=== PATIENT | female | born 1975 | race Two or more races ===

== ENCOUNTER 2019-03-06 17:17 | Emergency (ER) | payer MEDICAID ==
[~2019-03-06] VITALS: Ht 172.7 cm; Wt 127.0 kg
[2019-03-06] MEDS ORDERED: SODIUM CHLORIDE 0.9% 1,000 ML IV ONE ×2 (17:25)
[2019-03-06] MEDS ORDERED: InsuLIN REG 1unit/0.01ml Soln (100units/ml) IV ONE (17:30)
[2019-03-06 18:13] LABS: Basophils # (auto) 0.1 uL; Basophils % (auto) 0.8 % (0.0-2.0); Eosinophils # (auto) 0.1 uL; Eosinophils % (auto) 1.5 % (0.0-7.0); Hemoglobin 13.3 g/dL (12.2-16.2); Lymphocytes # (auto) 1.7 uL; Lymphocytes % (auto) 24.9 % (10.0-50.0); Mean Corpuscular Hemoglobin 30.9 pg (28.0-32.0); Mean Corpuscular Hgb Conc. 34.9 g/dL (32.0-36.0); Mean Corpuscular Volume 88.4 fL (80.0-100.0); Monocytes # (auto) 0.5 uL; Monocytes % (auto) 7.7 % (0.0-12.0); Neutrophils # (auto) 4.5 uL; Neutrophils % (auto) 65.1 % (37.0-80.0); Platelet Count (auto) 180 10^3/uL (140-450); Red Cell Distribution Width 12.2 % (11.8-14.3); White Blood Cell 6.9 10^3/uL (4.4-10.8)
[2019-03-06 18:24] LABS: Albumin 2.5 g/dL (3.4-5.0); Anion Gap 6 (5-15); Blood Urea Nitrogen 11 mg/dL (7-18); Calcium 7.7 mg/dL (8.5-10.1); Carbon Dioxide 24 mmol/L (21-32); Chloride 108 mmol/L (98-107); Glucose 381 mg/dL (74-106); Potassium 3.4 mmol/L (3.5-5.1); Sodium 138 mmol/L (136-145)
[2019-03-06 18:29] LABS: Alanine Aminotransferase 18 U/L (13-56); Alkaline Phosphatase 107 U/L (45-117); Aspartate Aminotransferase 13 U/L (15-37); BUN/Creatinine Ratio 14.9; Bilirubin, Total 0.2 mg/dL (0.2-1.0); GFR African American 110 mL/min; GFR Non-African American 91 mL/min; Total Protein 6.4 g/dL (6.4-8.2)
[2019-03-06 19:00] VITALS: BP 161/70
[2019-03-06 19:10] LABS: Urine Bacteria FEW /hpf (None Seen); Urine Blood Negative /uL (Negative); Urine Specific Gravity 1.038 (1.001-1.035); Urine WBC 22 /hpf (0 - 5)
[2019-03-06] MEDS ORDERED: POTASSIUM EFFERVESENT TAB 25 MEQ PO ONE (19:30)
== END 2019-03-06 19:48 | disposition home or self-care (01) ==
LOC: ER 17:17 → EDBD 17:17 → ER 19:48
DX: E11.65 Type 2 diabetes mellitus with hyperglycemia (principal); N39.0 Urinary tract infection, site not specified; E87.6 Hypokalemia; E44.0 Moderate protein-calorie malnutrition; Z68.41 Body mass index [BMI] 40.0-44.9, adult
CPT/HCPCS: 36415; 80053; 81001; 82962; 84484; 85025; 93005; 96361; 96374; 99284; J1815; J7030

== ENCOUNTER 2020-01-31 00:38 | Emergency (ER) | payer MEDICAID ==
[~2020-01-31] VITALS: Ht 170.2 cm; Wt 131.5 kg
[2020-01-31] MEDS ORDERED: SODIUM CHLORIDE 0.9% 1,000 ML IV ONE (01:00)
[2020-01-31] MEDS ORDERED: ACCU-CHEK COMFORT CURVE STRIP VI ONE (01:00)
[2020-01-31] MEDS ORDERED: InsuLIN REG 1unit/0.01ml Soln (100units/ml) IV ONE (01:00)
[2020-01-31 02:54] LABS: Basophils # (auto) 0 10 ^3/uL (0-0.2); Basophils % (auto) 0.2 % (0.0-2.0); Eosinophils # (auto) 0.1 10 ^3/uL (0-0.8); Eosinophils % (auto) 0.9 % (0.0-7.0); Hemoglobin 15.1 g/dL (12.2-16.2); Lymphocytes # (auto) 1.7 10 ^3/uL (0.4-5.4); Lymphocytes % (auto) 15.5 % (10.0-50.0); Mean Corpuscular Hgb Conc. 34.4 g/dL (32.0-36.0); Mean Corpuscular Volume 90.1 fL (80.0-100.0); Monocytes # (auto) 0.7 10 ^3/uL (0-1.3); Monocytes % (auto) 6.4 % (0.0-12.0); Neutrophils # (auto) 8.5 10 ^3/uL (1.6-8.6); Platelet Count (auto) 199 10^3/uL (140-450); Red Blood Cells 4.88 10^6/uL (4.0-5.20); Red Cell Distribution Width 11.9 % (11.8-14.3); White Blood Cell 11.1 10^3/uL (4.4-10.8)
[2020-01-31 03:02] LABS: Albumin 2.6 g/dL (3.4-5.0); Anion Gap 6 (5-15); BUN/Creatinine Ratio 10.8; Blood Urea Nitrogen 8 mg/dL (7-18); Calcium 8.2 mg/dL (8.5-10.1); Carbon Dioxide 27 mmol/L (21-32); Chloride 100 mmol/L (98-107); GFR African American 110 mL/min; GFR Non-African American 91 mL/min; Glucose 369 mg/dL (74-106); Potassium 3.6 mmol/L (3.5-5.1); Sodium 133 mmol/L (136-145)
[2020-01-31 03:07] LABS: Alanine Aminotransferase 25 U/L (13-56); Alkaline Phosphatase 122 U/L (45-117); Aspartate Aminotransferase 14 U/L (15-37); Bilirubin, Total 0.6 mg/dL (0.2-1.0); Total Protein 7.9 g/dL (6.4-8.2)
[2020-01-31] MEDS ORDERED: MORPHINE SULFATE 4 MG/ML SYR/VIAL IV ONE (04:45)
[2020-01-31] MEDS ORDERED: ONDANSETRON HCL 4 MG/2 ML VIAL IV ONE (04:45)
[2020-01-31 06:10] LABS: Urine Bacteria NONE SEEN /hpf (None Seen); Urine Blood 3+ /uL (Negative); Urine Budding Yeast FEW /hpf (None Seen); Urine Specific Gravity 1.035 (1.001-1.035); Urine WBC 70 /hpf (0 - 5)
[2020-01-31] MEDS ORDERED: cefTRIAXone 1GM/50ML D5W 50 ML IV ONE (09:15)
[2020-01-31 11:00] VITALS: BP 143/76
== END 2020-01-31 11:25 | disposition home or self-care (01) ==
LOC: EDBD 00:38 → ER 00:38
DX: E11.65 Type 2 diabetes mellitus with hyperglycemia (principal); N12 Tubulo-interstitial nephritis, not specified as acute or chronic; Z20.828 Contact with and (suspected) exposure to other viral communicable diseases
CPT/HCPCS: 36415; 36600; 80053; 81001; 82805; 82962; 83880; 84484; 85025; 87426; 96361; 96365; 96375; 99285; J0696; J1815; J2270; J2405; J7030

== ENCOUNTER 2021-05-02 23:01 | Inpatient (IN) | payer MEDICAID ==
[~2021-05-02] VITALS: Ht 170.2 cm; Wt 126.4 kg
[2021-05-03 00:03] LABS: Basophils # (auto) 0.1 10 ^3/uL (0-0.2); Basophils % (auto) 0.5 % (0.0-2.0); Eosinophils # (auto) 0 10 ^3/uL (0-0.8); Eosinophils % (auto) 0.1 % (0.0-7.0); Hematocrit 46.7 % (36.0-46.0); Lymphocytes # (auto) 1.6 10 ^3/uL (0.4-5.4); Lymphocytes % (auto) 15.2 % (10.0-50.0); Mean Corpuscular Hemoglobin 30.4 pg (28.0-32.0); Mean Corpuscular Hgb Conc. 34.2 g/dL (32.0-36.0); Mean Corpuscular Volume 88.7 fL (80.0-100.0); Monocytes # (auto) 0.7 10 ^3/uL (0-1.3); Neutrophils # (auto) 8.3 10 ^3/uL (1.6-8.6); Neutrophils % (auto) 77.2 % (37.0-80.0); Red Blood Cells 5.26 10^6/uL (4.0-5.20); Red Cell Distribution Width 12.2 % (11.8-14.3); White Blood Cell 10.8 10^3/uL (4.4-10.8)
[2021-05-03 00:21] LABS: Albumin 2.8 g/dL (3.4-5.0); BUN/Creatinine Ratio 27.5; Calcium 9.1 mg/dL (8.5-10.1); Potassium 4.3 mmol/L (3.5-5.1)
[2021-05-03 00:29] LABS: Bilirubin, Total 0.6 mg/dL (0.2-1.0); Total Protein 7.8 g/dL (6.4-8.2)
[2021-05-03] MEDS ORDERED: levETIRAcetam 500 MG/5ML INJ IV ONE (02:41)
[2021-05-03] MEDS ORDERED: LORazepam 2MG/ML-1ML VIAL IV ONE (02:45)
[2021-05-03] MEDS ORDERED: SODIUM CHLORIDE 0.9% 1,000 ML IV ONE (03:15)
[2021-05-03 03:52] LABS: Basophils # (auto) 0.1 10 ^3/uL (0-0.2); Basophils % (auto) 0.6 % (0.0-2.0); Eosinophils # (auto) 0 10 ^3/uL (0-0.8); Eosinophils % (auto) 0.1 % (0.0-7.0); Hematocrit 44.9 % (36.0-46.0); Hemoglobin 15.3 g/dL (12.2-16.2); Mean Corpuscular Hemoglobin 30.2 pg (28.0-32.0); Mean Corpuscular Hgb Conc. 34.2 g/dL (32.0-36.0); Mean Corpuscular Volume 88.4 fL (80.0-100.0); Monocytes # (auto) 0.7 10 ^3/uL (0-1.3); Monocytes % (auto) 6.7 % (0.0-12.0); Neutrophils # (auto) 7.8 10 ^3/uL (1.6-8.6); Neutrophils % (auto) 73.6 % (37.0-80.0); Red Blood Cells 5.08 10^6/uL (4.0-5.20); White Blood Cell 10.6 10^3/uL (4.4-10.8)
[2021-05-03 04:12] LABS: Calcium 8.4 mg/dL (8.5-10.1); Potassium 3.7 mmol/L (3.5-5.1)
[2021-05-03 04:23] LABS: Albumin 2.6 g/dL (3.4-5.0); BUN/Creatinine Ratio 28.3; Bilirubin, Total 0.7 mg/dL (0.2-1.0); Total Protein 7.5 g/dL (6.4-8.2)
[2021-05-03 04:42] LABS: Amphetamine Screen, Urine POSITIVE (NEGATIVE); Barbiturate Scree,Urine NEGATIVE (NEGATIVE); Benzodiazephine Screen, Urine NEGATIVE (NEGATIVE); Cannabinoid Screen, Urine NEGATIVE (NEGATIVE); Cocaine Screen, Urine NEGATIVE (NEGATIVE); Opiate Scree,Urine NEGATIVE (NEGATIVE); Phencyclidine Screen, Urine NEGATIVE (NEGATIVE)
[2021-05-03 05:12] LABS: Urine Bacteria FEW /hpf (None Seen); Urine Blood Negative /uL (Negative); Urine Mucus FEW (None Seen); Urine Specific Gravity 1.048 (1.001-1.035); Urine WBC 4 /hpf (0 - 5)
[2021-05-03] MEDS ORDERED: hydrALAZINE HCL 10 MG TAB PO PRN (06:15)
[2021-05-03] MEDS ORDERED: ONDANSETRON HCL 4 MG/2 ML VIAL IV PRN (06:15)
[2021-05-03] MEDS ORDERED: LORazepam 2MG/ML-1ML VIAL IV SCH (08:00)
[2021-05-03] MEDS ORDERED: METF-370 PO (09:27)
[2021-05-03] MEDS: ASPirin 81 mg TAB PO SCH (10:22)
[2021-05-03] MEDS: ATORVASTATIN 20 MG TAB PO SCH (10:22)
[2021-05-03] MEDS ORDERED: ACETAMINOPHEN 325 MG TAB PO SCH (12:00)
[2021-05-03 13:00] VITALS: BP 123/67
[2021-05-03 17:00] VITALS: BP 148/90
[2021-05-03] MEDS ORDERED: DEXTROSE (50%) 50ML SYRG IV PRN (20:15)
[2021-05-03] MEDS: MORPHINE SULFATE INJECTION 2 MG/ML SYRG IV PRN (20:26)
[2021-05-03] MEDS ORDERED: LORazepam 2MG/ML-1ML VIAL IV PRN (21:00)
[2021-05-03 22:00] VITALS: BP 126/69
[2021-05-03] MEDS: ACCU-CHEK COMFORT CURVE STRIP VI SCH (23:36)
[2021-05-03] MEDS: InsuLIN REG 1unit/0.01ml Soln (100units/ml) SC SCH (23:38)
[2021-05-04] MEDS: LORazepam 2MG/ML-1ML VIAL IV PRN (01:07)
[2021-05-04 05:00] VITALS: BP 131/75
[2021-05-04] MEDS: ACCU-CHEK COMFORT CURVE STRIP VI SCH ×3 (05:45→17:32)
[2021-05-04] MEDS: InsuLIN REG 1unit/0.01ml Soln (100units/ml) SC SCH ×4 (05:48→17:33)
[2021-05-04 09:00] VITALS: BP 125/65
[2021-05-04] MEDS: ATORVASTATIN 20 MG TAB PO SCH (09:07)
[2021-05-04] MEDS: ASPirin 81 mg TAB PO SCH (09:07)
[2021-05-04] MEDS: ACETAMINOPHEN 325 MG TAB PO PRN (12:35)
[2021-05-04 12:42] LABS: Cholesterol 155 mg/dL (< 200)
[2021-05-04 12:45] LABS: HDL Cholesterol 32 mg/dL (40-59); LDL Cholesterol 108 mg/dL (< 100); Triglycerides 117 mg/dL (< 150)
[2021-05-04 13:00] VITALS: BP 129/59
[2021-05-04 17:00] VITALS: BP 143/61
[2021-05-04 21:43] VITALS: BP 129/83
[2021-05-05] MEDS: ACCU-CHEK COMFORT CURVE STRIP VI SCH ×4 (00:13→16:58)
[2021-05-05] MEDS: InsuLIN REG 1unit/0.01ml Soln (100units/ml) SC SCH ×5 (00:14→23:57)
[2021-05-05] MEDS: MORPHINE SULFATE INJECTION 2 MG/ML SYRG IV PRN (01:51)
[2021-05-05 05:00] VITALS: BP 131/68
[2021-05-05 09:17] VITALS: BP 123/77
[2021-05-05] MEDS: ASPirin 81 mg TAB PO SCH (10:30)
[2021-05-05] MEDS: ATORVASTATIN 20 MG TAB PO SCH (10:30)
[2021-05-05] MEDS: LORazepam 2MG/ML-1ML VIAL IV PRN (10:35)
[2021-05-05 13:00] VITALS: BP 134/72
[2021-05-05 14:48] LABS: Albumin 2.7 g/dL (3.4-5.0); Calcium 8.7 mg/dL (8.5-10.1); Potassium 3.9 mmol/L (3.5-5.1)
[2021-05-05 14:51] LABS: BUN/Creatinine Ratio 24.1; Total Protein 7.1 g/dL (6.4-8.2)
[2021-05-05 17:05] VITALS: BP_SYST 119; BP_SYST 126; BP_DIAS 70; BP_DIAS 75
[2021-05-05 22:00] VITALS: BP 121/66
[2021-05-06 05:00] VITALS: BP 115/59
[2021-05-06] MEDS: ACCU-CHEK COMFORT CURVE STRIP VI SCH ×4 (06:00→17:43)
[2021-05-06] MEDS: InsuLIN REG 1unit/0.01ml Soln (100units/ml) SC SCH ×3 (06:25→17:45)
[2021-05-06 08:23] VITALS: BP 152/71
[2021-05-06] MEDS: ASPirin 81 mg TAB PO SCH (10:08)
[2021-05-06] MEDS: ATORVASTATIN 20 MG TAB PO SCH (10:08)
[2021-05-06 12:24] VITALS: BP 127/66
[2021-05-06 17:13] VITALS: BP 113/62
[2021-05-06] MEDS: ACETAMINOPHEN 325 MG TAB PO PRN (21:49)
[2021-05-06 22:00] VITALS: BP 116/59
[2021-05-07] MEDS: ACCU-CHEK COMFORT CURVE STRIP VI SCH ×3 (00:04→12:15)
[2021-05-07] MEDS: InsuLIN REG 1unit/0.01ml Soln (100units/ml) SC SCH ×3 (01:05→12:16)
[2021-05-07 05:00] VITALS: BP 112/57
[2021-05-07] MEDS: ACETAMINOPHEN 325 MG TAB PO PRN (06:35)
[2021-05-07 08:53] VITALS: BP 105/56
[2021-05-07] MEDS: ASPirin 81 mg TAB PO SCH (09:32)
[2021-05-07] MEDS: ATORVASTATIN 20 MG TAB PO SCH (09:33)
[2021-05-07 12:55] VITALS: BP 127/67
== END 2021-05-07 14:24 | disposition home or self-care (01) | DRG 53 ==
LOC: EDBD 23:01 → ER 23:01 → TELE 05-03 06:05 → TELE-WESTW 05-03 13:12
PROVIDERS: ADMIT Nurse Practitioner Family; ATTEND Nurse Practitioner Family
DX: G40.409 Other generalized epilepsy and epileptic syndromes, not intractable, without status epilepticus (principal); E88.09 Other disorders of plasma-protein metabolism, not elsewhere classified; E11.9 Type 2 diabetes mellitus without complications; Z20.822 Contact with and (suspected) exposure to COVID-19; E66.01 Morbid (severe) obesity due to excess calories; F15.90 Other stimulant use, unspecified, uncomplicated; F17.200 Nicotine dependence, unspecified, uncomplicated; I10 Essential (primary) hypertension; Z68.41 Body mass index [BMI] 40.0-44.9, adult; Z90.49 Acquired absence of other specified parts of digestive tract
CPT/HCPCS: 36415; 70450; 70496; 70498; 70551; 71045; 80053; 80061; 80307; 81001; 82962; 83880; 84484; 85025; 87426; 93005; 93306; 95819; 96365; 96366; 96375; 97110; 97116; 97162; 97530; 99291; G0378; J1815; J7060

== ENCOUNTER 2021-05-11 09:13 | Emergency (ER) | payer MEDICAID ==
[~2021-05-11] VITALS: Ht 172.7 cm; Wt 122.5 kg
[~2021-05-11 09:13] MED LIST: METF-370 PO
[2021-05-11 10:17] VITALS: BP 144/75
== END 2021-05-11 10:27 | disposition home or self-care (01) ==
LOC: ER 09:13
DX: L23.9 Allergic contact dermatitis, unspecified cause (principal); E11.9 Type 2 diabetes mellitus without complications
CPT/HCPCS: 73120

== ENCOUNTER 2022-09-19 13:00 | Emergency (ER) | payer MEDICAID ==
[~2022-09-19] VITALS: Ht 175.3 cm; Wt 150.0 kg
[2022-09-19 13:10] VITALS: BP 175/80
== END 2022-09-19 13:38 | disposition left against medical advice (07) ==
LOC: ER 13:00
DX: R73.9 Hyperglycemia, unspecified (principal); R42 Dizziness and giddiness; Z53.21 Procedure and treatment not carried out due to patient leaving prior to being seen by health care provider
CPT/HCPCS: 82962

== ENCOUNTER 2022-09-24 18:07 | Emergency (ER) | payer MEDICAID ==
[~2022-09-24] VITALS: Ht 175.3 cm; Wt 100.0 kg
[2022-09-24 18:14] VITALS: BP 127/73
== END 2022-09-24 19:49 | disposition left against medical advice (07) ==
LOC: EDBD 18:07 → ER 18:07
DX: S09.90XA Unspecified injury of head, initial encounter (principal); E11.9 Type 2 diabetes mellitus without complications; Z79.84 Long term (current) use of oral hypoglycemic drugs; Y04.2XXA Assault by strike against or bumped into by another person, initial encounter; Y93.89 Activity, other specified; Y92.89 Other specified places as the place of occurrence of the external cause; Y99.8 Other external cause status

== ENCOUNTER 2023-01-27 13:41 | Emergency (ER) | payer MEDICAID ==
[~2023-01-27] VITALS: Ht 175.3 cm; Wt 111.0 kg
[2023-01-27] MEDS ORDERED: KETOROLAC TROMETH 60MG/2ML VIAL IM ONE (14:15)
[2023-01-27 14:48] LABS: Basophils # (auto) 0 10 ^3/uL (0-0.2); Basophils % (auto) 0.3 % (0.0-2.0); Eosinophils # (auto) 0.3 10 ^3/uL (0-0.8); Eosinophils % (auto) 3.6 % (0.0-7.0); Hematocrit 42.7 % (36.0-46.0); Hemoglobin 14.5 g/dL (12.2-16.2); Lymphocytes # (auto) 2.8 10 ^3/uL (0.4-5.4); Lymphocytes % (auto) 32.3 % (10.0-50.0); Mean Corpuscular Hemoglobin 30.3 pg (28.0-32.0); Mean Corpuscular Volume 89.1 fL (80.0-100.0); Monocytes # (auto) 0.4 10 ^3/uL (0-1.3); Monocytes % (auto) 4.8 % (0.0-12.0); Neutrophils # (auto) 5.1 10 ^3/uL (1.6-8.6); Red Blood Cells 4.79 10^6/uL (4.0-5.20); Red Cell Distribution Width 13.2 % (11.8-14.3); White Blood Cell 8.7 10^3/uL (4.4-10.8)
[2023-01-27 15:03] LABS: Albumin 3.2 g/dL (3.4-5.0); Calcium 8.8 mg/dL (8.5-10.1)
[2023-01-27 15:05] LABS: BUN/Creatinine Ratio 14.9 (10.0-20.0)
[2023-01-27 15:07] LABS: Bilirubin, Total 0.5 mg/dL (0.2-1.0); Total Protein 7.7 g/dL (6.4-8.2)
[2023-01-27 16:43] LABS: Urine Bacteria FEW /hpf (None Seen); Urine Blood Negative /uL (Negative); Urine Clarity CLOUDY (Clear); Urine Color Yellow (Yellow); Urine Mucus FEW (None Seen); Urine Protein, UAD TRACE (Negative); Urine Specific Gravity 1.023 (1.001-1.035); Urine Urobilinogen Normal (Negative); Urine WBC 24 /hpf (0 - 5); Urine pH 5.5 (5.0-8.0)
[2023-01-27] MEDS ORDERED: CIPR-173 PO (16:52)
[2023-01-27] MEDS ORDERED: CIPROFLOXACIN HCL 500 MG TAB PO ONE (17:00)
[2023-01-27 17:11] VITALS: BP 162/84; PULSE 88; RESP 18; TEMP 98.8; O2SAT 99
== END 2023-01-27 17:12 | disposition home or self-care (01) ==
LOC: ER 13:41
DX: N39.0 Urinary tract infection, site not specified (principal); I10 Essential (primary) hypertension; E11.9 Type 2 diabetes mellitus without complications; Z90.49 Acquired absence of other specified parts of digestive tract; Z79.2 Long term (current) use of antibiotics; Z79.899 Other long term (current) drug therapy
CPT/HCPCS: 36415; 74176; 80053; 81001; 85025; 96372; 99285; J1885

== ENCOUNTER 2023-09-01 18:10 | Inpatient (IN) | payer MEDICAID ==
[~2023-09-01] VITALS: Ht 172.7 cm; Wt 113.0 kg
[~2023-09-01 18:10] MED LIST changes: +CIPR-173 PO
[2023-09-01 19:03] LABS: Basophils # (auto) 0 10 ^3/uL (0-0.2); Basophils % (auto) 0.4 % (0.0-2.0); Eosinophils # (auto) 0.1 10 ^3/uL (0-0.8); Eosinophils % (auto) 0.8 % (0.0-7.0); Hematocrit 41.8 % (36.0-46.0); Lymphocytes # (auto) 2.3 10 ^3/uL (0.4-5.4); Lymphocytes % (auto) 28.4 % (10.0-50.0); Mean Corpuscular Hemoglobin 29.6 pg (28.0-32.0); Mean Corpuscular Hgb Conc. 33.5 g/dL (32.0-36.0); Mean Corpuscular Volume 88.4 fL (80.0-100.0); Monocytes # (auto) 0.4 10 ^3/uL (0-1.3); Monocytes % (auto) 5.5 % (0.0-12.0); Neutrophils # (auto) 5.2 10 ^3/uL (1.6-8.6); Neutrophils % (auto) 64.9 % (37.0-80.0); Red Blood Cells 4.73 10^6/uL (4.0-5.20); Red Cell Distribution Width 13.2 % (11.8-14.3)
[2023-09-01 19:25] LABS: Alanine Aminotransferase 17 U/L (7-40); Albumin 3.7 g/dL (3.2-4.8); Alkaline Phosphatase 97 U/L (46-116); Anion Gap 6 (5-15); Aspartate Aminotransferase 16 U/L (13-40); BUN/Creatinine Ratio 14.1 (10.0-20.0); Blood Urea Nitrogen 11 mg/dL (9-23); Carbon Dioxide 29 mmol/L (20-30); Chloride 101 mmol/L (98-107); Glucose 260 mg/dL (74-106); Sodium 136 mmol/L (136-145)
[2023-09-01 19:26] LABS: Bilirubin, Total 0.5 mg/dL (0.2-1.0); Total Protein 6.9 g/dL (5.7-8.2)
[2023-09-01] MEDS: IOHEXOL 350 MG/ML 100ML IJ ONE (20:50)
[2023-09-01 21:00] VITALS: PULSE 87; RESP 18; O2SAT 98
[2023-09-02] MEDS ORDERED: ONDANSETRON HCL 4 MG/2 ML VIAL IV PRN (00:30)
[2023-09-02] MEDS ORDERED: DEXTROSE (50%) 50ML SYRG IV PRN (00:30)
[2023-09-02] MEDS: HYDROcodone-ACET 5/325MG TAB PO PRN (01:02)
[2023-09-02 01:31] LABS: Urine Bacteria NONE SEEN /hpf (None Seen); Urine Blood 1+ /uL (Negative); Urine Clarity Clear (Clear); Urine Color Colorless (Yellow); Urine Protein, UAD TRACE (Negative); Urine WBC 3 /hpf (0 - 5)
[2023-09-02 01:32] LABS: Urine Specific Gravity > 1.050 (1.001-1.035)
[2023-09-02 01:38] LABS: Amphetamine Screen, Urine Pos (NEGATIVE); Barbiturate Scree,Urine Neg (NEGATIVE); Benzodiazephine Screen, Urine Neg (NEGATIVE); Cannabinoid Screen, Urine Neg (NEGATIVE); Cocaine Screen, Urine Neg (NEGATIVE); Opiate Scree,Urine Neg (NEGATIVE); Phencyclidine Screen, Urine Neg (NEGATIVE)
[2023-09-02] MEDS: InsuLIN REG 1unit/0.01ml Soln (100units/ml) SC SCH (06:24)
[2023-09-02] MEDS: ACCU-CHEK COMFORT CURVE STRIP VI SCH (06:25)
[2023-09-02 07:30] VITALS: PULSE 80; RESP 18; O2SAT 98
[2023-09-02] MEDS ORDERED: hydrALAZINE HCL 20 MG/ML VL IV PRN (07:30)
[2023-09-02 08:14] LABS: Basophils # (auto) 0 10 ^3/uL (0-0.2); Basophils % (auto) 0.4 % (0.0-2.0); Eosinophils # (auto) 0.1 10 ^3/uL (0-0.8); Eosinophils % (auto) 1.8 % (0.0-7.0); Hematocrit 39.6 % (36.0-46.0); Hemoglobin 13.1 g/dL (12.2-16.2); Lymphocytes # (auto) 2.5 10 ^3/uL (0.4-5.4); Lymphocytes % (auto) 35.1 % (10.0-50.0); Mean Corpuscular Hemoglobin 29.2 pg (28.0-32.0); Mean Corpuscular Volume 88.7 fL (80.0-100.0); Monocytes # (auto) 0.6 10 ^3/uL (0-1.3); Neutrophils # (auto) 3.9 10 ^3/uL (1.6-8.6); Neutrophils % (auto) 54.7 % (37.0-80.0); Nucleated Red Blood Cells % 0.1 %; Red Blood Cells 4.47 10^6/uL (4.0-5.20); Red Cell Distribution Width 12.9 % (11.8-14.3); White Blood Cell 7.1 10^3/uL (4.4-10.8)
[2023-09-02 08:27] LABS: Albumin 3.4 g/dL (3.2-4.8); Alkaline Phosphatase 80 U/L (46-116); Anion Gap 7 (5-15); Aspartate Aminotransferase 18 U/L (13-40); BUN/Creatinine Ratio 14.7 (10.0-20.0); Bilirubin, Total 0.7 mg/dL (0.2-1.0); Blood Urea Nitrogen 10 mg/dL (9-23); CRP High Sensitivity 0.15 mg/dL (<1.0); Calcium 8.4 mg/dL (8.5-10.1); Carbon Dioxide 24 mmol/L (20-30); Chloride 105 mmol/L (98-107); Cholesterol 136 mg/dL (< 200); Glucose 226 mg/dL (74-106); HDL Cholesterol 36 mg/dL (40-59); LDL Cholesterol 87 mg/dL (< 100); Potassium 3.6 mmol/L (3.5-5.1); Sodium 136 mmol/L (136-145); Total Protein 6.5 g/dL (5.7-8.2); Triglycerides 135 mg/dL (< 150)
[2023-09-02 08:32] LABS: INR 1.09 (0.9-1.15); Prothrombin Time 11.4 sec (9.3-11.8)
[2023-09-02 08:34] LABS: Alanine Aminotransferase 9 U/L (7-40)
[2023-09-02 09:18] LABS: Magnesium 1.5 mg/dL (1.6-2.6)
[2023-09-02 09:29] LABS: Folate (Folic Acid) 19.22 ng/mL (>5.38)
[2023-09-02] MEDS: ATORVASTATIN 20 MG TAB PO ONE (09:51)
[2023-09-02] MEDS: LISINOPRIL 5 MG TAB PO SCH (09:51)
[2023-09-02] MEDS: MAGNESIUM SULFATE 1GM/100ML 100 ML IV SCH (12:30)
[2023-09-02] MEDS: ENOXAPARIN SOD 40 MG/0.4 ML SYRINGE SC ONE (12:32)
[2023-09-02] MEDS: CYANOCOBALAMIN (B-12) 1000 MCG/1 ML VIAL IM ONE (12:33)
[2023-09-02] MEDS: CLOPIDOGREL BISULFATE 75 MG TAB PO ONE (14:21)
[2023-09-02] MEDS: ERGOCALCIFEROL 50,000 UNIT(1.25MG) CAP PO SCH (14:21)
[2023-09-02] MEDS: LIDOCAINE VISCOUS 2% 15ML UD MT ONE (15:31)
[2023-09-02] MEDS: MIDAZOLAM HCL 2MG/2ML 2ml VIAL (1mg/ml) IV ONE ×3 (15:45→15:49)
[2023-09-02] MEDS: fentaNYL CITRATE 100 MCG/2 ML VL IV ONE ×2 (15:45→15:47)
[2023-09-02 19:30] VITALS: PULSE 81; RESP 14; O2SAT 94
[2023-09-02 21:46] VITALS: BP 137/74; PULSE 81; RESP 14; O2SAT 94
[2023-09-02 21:50] VITALS: O2SAT 96
[2023-09-03] VITALS (22 sets, daily range): BP systolic 96–162; BP diastolic 47–85; PULSE 67–87; RESP 11–20; TEMP 97.6–99; O2SAT 91–99
[2023-09-03 06:35] LABS: Basophils # (auto) 0 10 ^3/uL (0-0.2); Basophils % (auto) 0.4 % (0.0-2.0); Eosinophils # (auto) 0.2 10 ^3/uL (0-0.8); Eosinophils % (auto) 3.1 % (0.0-7.0); Hematocrit 39.2 % (36.0-46.0); Hemoglobin 13.1 g/dL (12.2-16.2); Lymphocytes # (auto) 2.5 10 ^3/uL (0.4-5.4); Lymphocytes % (auto) 34.2 % (10.0-50.0); Mean Corpuscular Hgb Conc. 33.4 g/dL (32.0-36.0); Mean Corpuscular Volume 89.9 fL (80.0-100.0); Monocytes # (auto) 0.7 10 ^3/uL (0-1.3); Monocytes % (auto) 9.5 % (0.0-12.0); Neutrophils # (auto) 3.8 10 ^3/uL (1.6-8.6); Neutrophils % (auto) 52.8 % (37.0-80.0); Nucleated Red Blood Cells % 0.1 %; Red Blood Cells 4.36 10^6/uL (4.0-5.20); Red Cell Distribution Width 12.9 % (11.8-14.3); White Blood Cell 7.2 10^3/uL (4.4-10.8)
[2023-09-03 06:38] LABS: Chloride 109 mmol/L (98-107); Potassium 3.8 mmol/L (3.5-5.1); Sodium 137 mmol/L (136-145)
[2023-09-03 06:40] LABS: Anion Gap 4 (5-15); Calcium 8.3 mg/dL (8.7-10.4); Carbon Dioxide 24 mmol/L (20-30)
[2023-09-03 06:45] LABS: BUN/Creatinine Ratio 15.5 (10.0-20.0); Blood Urea Nitrogen 9 mg/dL (9-23); Glucose 165 mg/dL (74-106)
[2023-09-03 06:46] LABS: Magnesium 1.7 mg/dL (1.6-2.6)
[2023-09-03] MEDS: INSULIN LANTUS (GLARGINE) 1 /0.01ml (100units/ml) SC SCH (07:06)
[2023-09-03] MEDS: ENOXAPARIN SOD 40 MG/0.4 ML SYRINGE SC SCH (09:55)
[2023-09-03] MEDS: ASPirin-EC 81 mg tab PO SCH (09:57)
[2023-09-03] MEDS: CYANOCOBALAMIN 500 MCG TAB PO SCH (09:57)
[2023-09-03] MEDS: CLOPIDOGREL BISULFATE 75 MG TAB PO SCH (09:58)
[2023-09-03] MEDS: MAGNESIUM SULFATE 1GM/100ML 100 ML IV ONE (13:31)
[2023-09-03] MEDS: buPROPion HCL 75 MG TAB PO SCH (17:52)
[2023-09-03] MEDS: ATORVASTATIN 20 MG TAB PO SCH (21:44)
[2023-09-03] MEDS: ACETAMINOPHEN 325 MG TAB PO PRN (21:53)
[2023-09-04 01:00] VITALS: BP 149/74; PULSE 81; RESP 18; TEMP 97.6; O2SAT 96
[2023-09-04 02:07] VITALS: O2SAT 96
[2023-09-04 05:00] VITALS: BP 139/79; PULSE 69; RESP 18; TEMP 97.7; O2SAT 95
[2023-09-04] MEDS: INSULIN LANTUS (GLARGINE) 1 /0.01ml (100units/ml) SC SCH (06:08)
[2023-09-04 06:42] LABS: Basophils # (auto) 0 10 ^3/uL (0-0.2); Basophils % (auto) 0.6 % (0.0-2.0); Eosinophils # (auto) 0.2 10 ^3/uL (0-0.8); Eosinophils % (auto) 2.8 % (0.0-7.0); Hematocrit 40.4 % (36.0-46.0); Hemoglobin 13.5 g/dL (12.2-16.2); Lymphocytes # (auto) 2.7 10 ^3/uL (0.4-5.4); Lymphocytes % (auto) 37.5 % (10.0-50.0); Mean Corpuscular Hemoglobin 29.8 pg (28.0-32.0); Mean Corpuscular Hgb Conc. 33.5 g/dL (32.0-36.0); Mean Corpuscular Volume 88.8 fL (80.0-100.0); Monocytes # (auto) 0.7 10 ^3/uL (0-1.3); Monocytes % (auto) 9.9 % (0.0-12.0); Neutrophils # (auto) 3.5 10 ^3/uL (1.6-8.6); Neutrophils % (auto) 49.2 % (37.0-80.0); Red Blood Cells 4.55 10^6/uL (4.0-5.20); Red Cell Distribution Width 12.8 % (11.8-14.3); White Blood Cell 7.1 10^3/uL (4.4-10.8)
[2023-09-04] MEDS ORDERED: ATOR20TA50 PO (06:47)
[2023-09-04] MEDS ORDERED: LISI-275 PO (06:47)
[2023-09-04] MEDS ORDERED: EMPA1TAB PO (06:47)
[2023-09-04] MEDS ORDERED: ASPI-543 PO (06:47)
[2023-09-04] MEDS ORDERED: CLOP75TA70 PO (06:47)
[2023-09-04] MEDS ORDERED: ERGO1CAP23 PO (06:47)
[2023-09-04] MEDS ORDERED: METF-370 PO (06:47)
[2023-09-04] MEDS ORDERED: BUPR75TA96 PO (06:47)
[2023-09-04] MEDS ORDERED: CYAN500T3 PO (06:47)
[2023-09-04 06:55] LABS: Chloride 109 mmol/L (98-107); Potassium 4.1 mmol/L (3.5-5.1); Sodium 137 mmol/L (136-145)
[2023-09-04 06:56] LABS: Anion Gap 2 (5-15); Calcium 8.7 mg/dL (8.7-10.4); Carbon Dioxide 26 mmol/L (20-30)
[2023-09-04 07:01] LABS: BUN/Creatinine Ratio 18.3 (10.0-20.0); Blood Urea Nitrogen 11 mg/dL (9-23); Glucose 161 mg/dL (74-106)
[2023-09-04 07:02] LABS: Magnesium 1.6 mg/dL (1.6-2.6)
[2023-09-04 09:00] VITALS: BP 136/81; PULSE 91; RESP 18; TEMP 98.2; O2SAT 97
[2023-09-04 10:51] VITALS: BP 136/81; PULSE 91; RESP 18; TEMP 98.2; O2SAT 97
[2023-09-04] MEDS ORDERED: LANC-347 XX (14:05)
[2023-09-04] MEDS ORDERED: BLOO-169 XX (14:05)
== END 2023-09-04 13:30 | disposition home or self-care (01) | DRG 45 ==
LOC: ER 18:10 → EEVIPCON 18:10 → OVERFLOW 23:55 → DOU IN ICU 09-03 03:35 → TELE-CENTR 09-03 16:26
PROVIDERS: ADMIT Internal Medicine; ATTEND Emergency Medicine
PROC: B24BZZ4 Ultrasonography of Heart with Aorta, Transesophageal (ICD-10-PCS; principal; 2023-09-02)
DX: I63.9 Cerebral infarction, unspecified (principal); E11.65 Type 2 diabetes mellitus with hyperglycemia; G40.909 Epilepsy, unspecified, not intractable, without status epilepticus; I10 Essential (primary) hypertension; E66.9 Obesity, unspecified; F15.10 Other stimulant abuse, uncomplicated; F17.210 Nicotine dependence, cigarettes, uncomplicated; G47.33 Obstructive sleep apnea (adult) (pediatric); G47.10 Hypersomnia, unspecified; E83.42 Hypomagnesemia; E53.8 Deficiency of other specified B group vitamins; I34.0 Nonrheumatic mitral (valve) insufficiency; F32.A Depression, unspecified; Z90.49 Acquired absence of other specified parts of digestive tract; Z98.891 History of uterine scar from previous surgery; Z68.37 Body mass index [BMI] 37.0-37.9, adult; Z79.899 Other long term (current) drug therapy; Z79.82 Long term (current) use of aspirin; Z86.73 Personal history of transient ischemic attack (TIA), and cerebral infarction without residual deficits; Z79.84 Long term (current) use of oral hypoglycemic drugs
CPT/HCPCS: 36415; 70450; 70496; 70551; 80048; 80053; 80061; 80307; 81001; 82306; 82607; 82746; 82962; 83036; 83735; 84443; 84484; 85025; 85610; 86141; 86850; 86900; 86901; 87081; 93005; 93306; 93312; 93886; 93970; G0378; J1815; J2250

== ENCOUNTER 2023-09-17 10:56 | Emergency (ER) | payer MEDICAID ==
[~2023-09-17] VITALS: Ht 175.3 cm; Wt 117.0 kg
[~2023-09-17 10:56] MED LIST changes: +ASPI-543 PO; +ATOR20TA50 PO; +BLOO-169 XX; +BUPR75TA96 PO; -CIPR-173 PO; +CLOP75TA70 PO; +CYAN500T3 PO; +EMPA1TAB PO; +ERGO1CAP23 PO; +LANC-347 XX; +LISI-275 PO
[2023-09-17 11:11] VITALS: BP 159/84; PULSE 95; RESP 18; O2SAT 99
[2023-09-17 12:12] LABS: Basophils # (auto) 0 10 ^3/uL (0-0.2); Basophils % (auto) 0.4 % (0.0-2.0); Eosinophils # (auto) 0.1 10 ^3/uL (0-0.8); Eosinophils % (auto) 1.7 % (0.0-7.0); Hematocrit 40.6 % (36.0-46.0); Hemoglobin 13.5 g/dL (12.2-16.2); Lymphocytes # (auto) 2.1 10 ^3/uL (0.4-5.4); Lymphocytes % (auto) 25.8 % (10.0-50.0); Mean Corpuscular Hemoglobin 30.1 pg (28.0-32.0); Mean Corpuscular Hgb Conc. 33.3 g/dL (32.0-36.0); Mean Corpuscular Volume 90.6 fL (80.0-100.0); Monocytes # (auto) 0.5 10 ^3/uL (0-1.3); Monocytes % (auto) 6.4 % (0.0-12.0); Neutrophils # (auto) 5.4 10 ^3/uL (1.6-8.6); Neutrophils % (auto) 65.7 % (37.0-80.0); Red Blood Cells 4.49 10^6/uL (4.0-5.20); Red Cell Distribution Width 13.6 % (11.8-14.3); White Blood Cell 8.2 10^3/uL (4.4-10.8)
[2023-09-17 12:31] LABS: Alanine Aminotransferase 16 U/L (7-40); Alkaline Phosphatase 95 U/L (46-116); Anion Gap 6 (5-15); Aspartate Aminotransferase 25 U/L (13-40); BUN/Creatinine Ratio 18.2 (10.0-20.0); Blood Urea Nitrogen 14 mg/dL (9-23); Carbon Dioxide 25 mmol/L (20-30); Chloride 105 mmol/L (98-107); Glucose 182 mg/dL (74-106); Potassium 3.9 mmol/L (3.5-5.1); Sodium 136 mmol/L (136-145)
[2023-09-17 12:32] LABS: Bilirubin, Total 0.4 mg/dL (0.2-1.0); Total Protein 7.1 g/dL (5.7-8.2)
[2023-09-17] MEDS: HYDROcodone-ACET 5/325MG TAB PO ONE (14:21)
[2023-09-17 15:01] LABS: Urine Bacteria FEW /hpf (None Seen); Urine Blood Negative /uL (Negative); Urine Clarity Turbid (Clear); Urine Color Light-Orange (Yellow); Urine Protein, UAD Negative (Negative); Urine Specific Gravity 1.045 (1.001-1.035); Urine Urobilinogen Normal (Negative); Urine WBC 10 /hpf (0 - 5)
[2023-09-17 15:13] LABS: Amphetamine Screen, Urine Neg (NEGATIVE); Barbiturate Scree,Urine Neg (NEGATIVE); Benzodiazephine Screen, Urine Neg (NEGATIVE); Cannabinoid Screen, Urine Neg (NEGATIVE); Cocaine Screen, Urine Neg (NEGATIVE); Opiate Scree,Urine Neg (NEGATIVE); Phencyclidine Screen, Urine Neg (NEGATIVE)
== END 2023-09-17 20:24 | disposition left against medical advice (07) ==
LOC: EEVIPCON 10:56 → ER 10:56
DX: R51.9 Headache, unspecified (principal); E11.9 Type 2 diabetes mellitus without complications; I10 Essential (primary) hypertension; Z98.51 Tubal ligation status; Z32.02 Encounter for pregnancy test, result negative; Z90.49 Acquired absence of other specified parts of digestive tract; Z79.899 Other long term (current) drug therapy
CPT/HCPCS: 36415; 70450; 80053; 80307; 81001; 81025; 83735; 84484; 85025

== ENCOUNTER 2023-12-30 08:39 | Emergency (ER) | payer MEDICAID ==
[~2023-12-30] VITALS: Ht 172.7 cm; Wt 123.2 kg
[2023-12-30 11:41] LABS: Rapid Influenza A Negative (Negative); Rapid Influenza B Negative (Negative)
[2023-12-30 11:42] LABS: COVID19 ANTIGEN SOFIA FIA POSITIVE (NEGATIVE)
[2023-12-30] MEDS ORDERED: MONT10TA23 PO (11:43)
[2023-12-30] MEDS ORDERED: PROM1SOL4 PO (11:43)
[2023-12-30 11:45] VITALS: BP 133/66; PULSE 95; RESP 17; TEMP 98.2; O2SAT 96
== END 2023-12-30 11:47 | disposition home or self-care (01) ==
LOC: ER 08:39
DX: U07.1 COVID-19 (principal); E11.9 Type 2 diabetes mellitus without complications; I10 Essential (primary) hypertension; R56.9 Unspecified convulsions; Z98.51 Tubal ligation status; Z90.49 Acquired absence of other specified parts of digestive tract
CPT/HCPCS: 36415; 87426; 87804

== ENCOUNTER 2024-05-21 15:22 | Inpatient (IN) | payer MEDICAID ==
[~2024-05-21] VITALS: Ht 175.3 cm; Wt 149.9 kg
[~2024-05-21 15:22] MED LIST changes: +MONT10TA23 PO; +PROM1SOL4 PO
--- NOTE | 2024-05-21 16:10 | ED.PDOC ---
HPI (NEURO) HPI Comments 48y F who presents to the ED for chief complaint of generalized weakness. Pt states she has been having generalized weakness and associated multiple falls and came to the ED for further evaluation. Pt states 1 days prior, she was on the phone with daughter and states she suddenly felt "dizzy and states went blank and for a few seconds, unable to understand what she was talking about." Pt states she quickly able to return to baseline mentation. Pt states today, she had multiple falls getting up from cough to use restroom and getting up to move from bed to closet and since, has been using the aide of her daughter to ambulate. Pt states has also felt weak today and has been having difficulty ambulating otherwise without getting dizzy. Pt denies any associated loss of consciousness after fall and is alert and oriented x4 in the ED and able to answer all questions. Pt otherwise has noted history of HTN, DM, CVA with no residual deficits and seizures. Pt denies any recent sick contacts. Pt otherwise denies any other symptoms at this time. Chief Complaint: General Weakness Time Seen by MD: 16:09 Primary Care Provider: ANASTASIYA Walker Notes: Nurses Notes, Medications, Allergies (No allergies to medications) Information Source: Patient, Relative Mode of Arrival: Wheelchair Brought in by: daughter Severity: Moderate Dizziness/Weakness Severity: Unable to do activities Headache Severity: Moderate Timing: Hours Duration: Since onset Prehospital treatment: None Weakness Location: Generalized Onset: At rest Circumstances: Spontaneous Symptoms: Faintness, Weakness History of: CVA, DM, Hypertension, Seizure Disorder Modifying factors: Nothing Associated Signs and Symptoms: Weakness Past Medical History PAST MEDICAL HISTORY: CVA, DM, HTN, Seizures Surgical History: BTL, Cholecystectomy, 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: No Pertinent 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 Family History Family History: Reviewed,noncontributory to illness Social History Smoker: Non-Smoker Alcohol: Denies ETOH Use Drugs: Denies Drug Use Lives In: Home Constitutional: reports: fatigue, malaise, weakness; denies: chills, diaphoresis, fever, sweats, others EENTM: denies: blurred vision, double vision, ear bleeding, ear discharge, ear drainage, ear pain, ear ringing, eye pain, eye redness, hearing loss, mouth pain, mouth swelling, nasal discharge, nose bleeding, nose congestion, nose pain, photophobia, tearing, throat pain, throat swelling, voice changes, others Respiratory: denies: cough, hemoptysis, orthopnea, SOB at rest, shortness of breath, SOB with excertion, stridor, wheezing, others Cardiovascular: denies: chest pain, dizzy spells, diaphoresis, Dyspnea on exertion, edema, irregular heart beat, left arm pain, lightheadedness, palpitations, PND, syncope, others Gastrointestinal: denies: abdomen distended, abdominal pain, blood streaked bowels, constipated, diarrhea, dysphagia, difficulty swallowing, hematemesis, melena, nausea, poor appetite, poor fluid intake, rectal bleeding, rectal pain, vomiting, others Genitourinary: denies: abnormal vagina bleeding, burning, dyspareunia, dysuria, flank pain, frequency, hematuria, incontinence, pain, , vagina discharge, urgency, others Neurological: reports: dizziness, headache, weakness; denies: fainting, left sided numbness, left sided weakness, numbness, paresthesia, pre-existing deficit, right sided numbness, right sided weakness, seizure, speech problems, tingling, tremors, others Musculoskeletal: denies: back pain, gout, joint pain, joint swelling, muscle pain, muscle stiffness, neck pain, others Integumetry: denies: bruises, change in color, change in hair/nails, dryness, laceration, lesions, lumps, rash, wounds, others Allergic/Immunocompromised: denies: Difficulty Healing, Frequent Infections, Hives, Itching, others Hematologic/Lymphatic: denies: anemia, blood clots, easy bleeding, easy bruising, swollen glands, others Endocrine: denies: excessive hunger, excessive sweating, excessive thirst, excessive urination, flushing, intolerance to cold, intolerance to heat, unexplained weight gain, unexplained weight loss, others Psychiatric: denies: anxiety, bipolar disorder, depression, hopeless, panic disorder, schizophrenia, sleepless, suicidal, others All Other Systems: Reviewed and Negative Physical Exam General Appearance: Moderate Distress, Obese HEENT: Normal ENT Inspection, Pharynx Normal, TMs Normal Neck: Full Range of Motion, Non-Tender, Normal, Normal Inspection Respiratory: Chest Non-Tender, Lungs Clear, No Accessory Muscle Use, No Respiratory Distress, Normal Breath Sounds Cardiovascular: No Edema, No JVD, No Murmur, No Gallop, Normal Peripheral Pulses, Regular Rate/Rhythm Breast Exam: Deferred Gastrointestinal: No Organomegaly, Non Tender, No Pulsatile Mass, Normal Bowel Sounds, Soft Genitalia: Deferred Pelvic: Deferred Rectal: Deferred Extremities: No calf tenderness, Normal capillary refill, No pedal edema Musculoskeletal : Apperance: Normal Neurologic: Alert, bisque ware dipper II-XII nml as Tested, Motor Weakness, Normal Affect, No Sensory Deficits Cerebellar Function: Normal Reflexes: Normal Skin: Dry, Normal Color, Warm Lymphatic: No Adenopathy EKG EKG : Pulse Rate (adult): 78 [place]: Normal Cardiac Rhythm: NSR Block: None Hypertrophy: None ST: Normal Was a procedure done? Was a procedure done?: No Differential Diagnosis (SZ) CVA: CVA, Electrolyte Imbalance, Encephalopathy, Hypoglycemia, Hypoxemia General Weakness: Anemia, CVA, Dehydration, Electrolyte imbalance, Hypotension, TIA, Vertigo: central, Vertigo: peripheral, Vestibular neuronitis, Other (accelerated HTN) Headache: Migraine, Closed Head Injury, Sinusitis, Trigeminal Neuralgia X-Ray, Labs, Meds, VS Vital Signs Date Time Temp Pulse Resp B/P (MAP) Pulse Ox O2 Delivery O2 Flow Rate FiO2 05/21/24 16:10 78 05/21/24 15:58 98.0 87 18 177/90 (119) 98 05/21/24 15:54 78 Lab Test 05/21/24 16:20 05/21/24 16:00 05/21/24 15:50 Range/Units White Blood Count 7.0 4.4-10.8 10^3/uL Red Blood Count 4.67 4.0-5.20 10^6/uL Hemoglobin 14.0 12.2-16.2 g/dL Hematocrit 41.4 36.0-46.0 % Mean Corpuscular Volume 88.7 80.0-100.0 fL Mean Corpuscular Hemoglobin 29.9 28.0-32.0 pg Mean Corpuscular Hemoglobin Concent 33.7 32.0-36.0 g/dL Red Cell Distribution Width 12.8 11.8-14.3 % Platelet Count 216 140-450 10^3/uL Mean Platelet Volume 8.6 6.9-10.8 fL Neutrophils (%) (Auto) 55.1 37.0-80.0 % Lymphocytes (%) (Auto) 34.3 10.0-50.0 % Monocytes (%) (Auto) 8.2 0.0-12.0 % Eosinophils (%) (Auto) 2.0 0.0-7.0 % Basophils (%) (Auto) 0.4 0.0-2.0 % Neutrophils # (Auto) 3.8 1.6-8.6 10 ^3/uL Lymphocytes # (Auto) 2.4 0.4-5.4 10 ^3/uL Monocytes # (Auto) 0.6 0-1.3 10 ^3/uL Eosinophils # (Auto) 0.1 0-0.8 10 ^3/uL Basophils # (Auto) 0 0-0.2 10 ^3/uL Nucleated Red Blood Cells 0.1 % Sodium Level 139 136-145 mmol/L Potassium Level 4.5 3.5-5.1 mmol/L Chloride Level 107 98-107 mmol/L Carbon Dioxide Level 26 20-31 mmol/L Anion Gap 6 5-15 Blood Urea Nitrogen 15 9-23 mg/dL Creatinine 0.74 0.550-1.02 mg/dL Glomerular Filtration Rate Calc 100 >90 mL/min BUN/Creatinine Ratio 20.3 H 10.0-20.0 Serum Glucose 158 H 74-106 mg/dL Lactic Acid Level 0.8 0.4-2.0 mmol/L Calcium Level 9.4 8.7-10.4 mg/dL Urine Color Pending Urine Clarity Pending Urine pH Pending Urine Specific [place] Pending Urine Protein Pending Urine Ketones Pending Urine Blood Pending Urine Nitrite Pending Urine Bilirubin Pending Urine Urobilinogen Pending Urine Leukocyte Esterase Pending Urine RBC Pending Urine WBC Pending Urine Squamous Epithelial Cells Pending Urine Bacteria Pending Urine Glucose Pending POC Glucose 169 H 70-106 mg/dl Current Medications Medications (Trade) Dose Ordered Sig/Reed Route Start Time Stop Time Status Last Admin Sodium Chloride 500 ml @ 500 mls/hr Q1H ONCE IV 05/21/24 16:15 05/21/24 17:14 DC 05/21/24 16:53 PROCEDURE(s): HWOCT - HEAD WITHOUT CONTRAST IMPRESSION: 1. No acute intracranial process. 2. Likely large chronic infarct involving the right temporoparietal lobes. There is also a chronic infarct in the left lateral cerebellum. The CBC is within normal limits Images Reviewed?: Images reviewed and evaluated by me Time of 1ST Reevaluation: 16:40 Reevaluation 1ST: Unchanged Patient Education/Counseling: Diagnosis, Treatment, Prognosis Family Education/Counseling: Diagnosis, Treatment, Prognosis Additional Information - I reviewed the following notes from patient's past medical encounters: - The following tests were ordered, and results were reviewed by me: CT head without contrast, EKG, CBC, UA, BMP, IV fluids, lactic acid - Additional information was gathered from interviewing the following independent Historian: daughter - I reviewed and agreed with the following test results read by other provider: radiologist - I discussed treatments and results with medical personnel and: patient and daughter Departure 1 Departure Time of Disposition: 19:02 Impression: Primary Impression: Generalized weakness Additional Impressions: Dehydration Status post CVA Disposition: 09 ADMITTED INPATIENT Admit to: Tele Condition: Fair Critical Care Note Critical Care Time?: No Stability Stability form required: Yes Unstable for transfer: Telemetry monitoring (Telemetry monitoring required), ED Physician Assesment (Clinical assesment) Heart Score Heart Score: Heart Score Response (Comments) Value History Moderate Suspicious 1 EKG Normal 0 Age 45-64 1 Risk Factors 1 or 2 risk factors 1 Troponin Normal limit 0 Total 3 I personally scribed for PRISCILA CLIFFORD MD ([email or web address]) on 05/21/24 at 16:10. Electronically submitted by Jessica Braswell ([email or web address]). I personally scribed for PRISCILA CLIFFORD MD ([email or web address]) on 05/21/24 at 16:17. Electronically submitted by Jessica Braswell ([email or web address]). I personally scribed for PRISCILA CLIFFORD MD ([email or web address]) on 05/21/24 at 16:52. Electronically submitted by Jessica [email or web address]). PRISCILA CLIFFORD MD May 21, 2024 16:10
--- NOTE | 2024-05-21 16:31 | DVH ---
EXAM: CT HEAD WITHOUT CONTRAST HISTORY: CONFUSION COMPARISON: CT HEAD WITHOUT CONTRAST on DOS: 09/17/23, MRI BRAIN HEAD WO CONTRAST on DOS: 09/02/23 TECHNIQUE: Axial images of the head were obtained and reformatted in coronal and sagittal planes. All CT scans at this medical facility are performed using dose modulation techniques as appropriate t o a performed exam including the following: Automated exposure control was utilized; adjustment of th e MA and/or KV according to patient size; and use of iterative reconstruction technique. CT Dose: CTDI volume is 69 mGy. Dose-length product is 1228 mGy*cm FINDINGS: There is large area of encephalomalacia involving the right temporal and right parietal lobe. This p robably relates to chronic infarct. There is also chronic infarct in the left lateral cerebellum with associated encephalomalacia. There is no evidence of acute intracranial hemorrhage, mass, mass effect midline shift. There is no h ydrocephalus or extra-axial fluid collection. Delete the There are retention cysts in the left maxillary sinus. The remaining visualized paranasal sinuses and mastoid air cells are clear. The calvarium is intact. IMPRESSION: 1. No acute intracranial process. 2. Likely large chronic infarct involving the right temporoparietal lobes. There is also a chronic in farct in the left lateral cerebellum. HS:Y
[2024-05-21 16:41] LABS: Basophils # (auto) 0 10 ^3/uL (0-0.2); Basophils % (auto) 0.4 % (0.0-2.0); Eosinophils # (auto) 0.1 10 ^3/uL (0-0.8); Hematocrit 41.4 % (36.0-46.0); Lymphocytes # (auto) 2.4 10 ^3/uL (0.4-5.4); Lymphocytes % (auto) 34.3 % (10.0-50.0); Mean Corpuscular Hemoglobin 29.9 pg (28.0-32.0); Mean Corpuscular Hgb Conc. 33.7 g/dL (32.0-36.0); Mean Corpuscular Volume 88.7 fL (80.0-100.0); Monocytes # (auto) 0.6 10 ^3/uL (0-1.3); Monocytes % (auto) 8.2 % (0.0-12.0); Neutrophils # (auto) 3.8 10 ^3/uL (1.6-8.6); Neutrophils % (auto) 55.1 % (37.0-80.0); Nucleated Red Blood Cells % 0.1 %; Platelet Count (auto) 216 10^3/uL (140-450); Red Blood Cells 4.67 10^6/uL (4.0-5.20); Red Cell Distribution Width 12.8 % (11.8-14.3)
[2024-05-21 16:50] LABS: Chloride 107 mmol/L (98-107); Potassium 4.5 mmol/L (3.5-5.1); Sodium 139 mmol/L (136-145)
[2024-05-21 16:51] LABS: Anion Gap 6 (5-15); Calcium 9.4 mg/dL (8.7-10.4); Carbon Dioxide 26 mmol/L (20-31)
[2024-05-21] MEDS: SODIUM CHLORIDE 0.9% 500 ML IV ONE (16:53)
[2024-05-21 16:56] LABS: BUN/Creatinine Ratio 20.3 (10.0-20.0); Blood Urea Nitrogen 15 mg/dL (9-23)
[2024-05-21 16:57] LABS: Glucose 158 mg/dL (74-106)
[2024-05-21 18:58] LABS: Urine Bacteria FEW /hpf (None Seen); Urine Blood Negative /uL (Negative); Urine Clarity Clear (Clear); Urine Color Light-Yellow (Yellow); Urine Mucus FEW (None Seen); Urine Protein, UAD Negative (Negative); Urine Specific Gravity 1.029 (1.001-1.035); Urine Urobilinogen Normal (Negative); Urine WBC <1 /hpf (0 - 5); Urine pH 5.5 (5.0-9.0)
[2024-05-21] MEDS ORDERED: NITROGLYCERIN 0.4 MG SL TAB SL PRN (21:15)
[2024-05-21] MEDS ORDERED: ONDANSETRON HCL 4 MG/2 ML VIAL IV PRN (21:15)
[2024-05-21] MEDS ORDERED: DOCUSATE SOD 100 MG CAP PO PRN (21:15)
[2024-05-21] MEDS ORDERED: MORPHINE SULFATE INJ 2 MG/ml SYRG IV PRN ×2 (21:15)
[2024-05-21] MEDS ORDERED: TEMAZEPAM 15 MG CAP PO PRN (21:15)
--- NOTE | 2024-05-21 21:45 | DVH ---
CHEST RADIOGRAPH Indication: Rule out pneumonia Technique: Single frontal view of the chest was obtained Comparison: CHEST PORTABLE on DOS: 05/03/21 FINDINGS: Lines and Tubes: None Lungs: Clear Pleura: No effusion. No pneumothorax. Cardiomediastinal contours: Unremarkable Bones: Unremarkable IMPRESSION: 1. Clear lungs.
[2024-05-21] MEDS: SODIUM CHLOR 0.9% PF (SALINE LOCK) 10ML VIAL/SYR IV SCH (22:18)
[2024-05-21 22:21] LABS: Blood Alcohol < 3.0 mg/dL (<10); Magnesium 1.6 mg/dL (1.6-2.6)
[2024-05-21 23:59] VITALS: PULSE 96; RESP 18; O2SAT 100
[2024-05-22] VITALS (7 sets, daily range): BP systolic 128–146; BP diastolic 57–71; PULSE 20–91; RESP 18–20; TEMP 98–98.4; O2SAT 96–99
[2024-05-22] MEDS ORDERED: DEXTROSE (50%) 50ML SYRG IV PRN
[2024-05-22] MEDS ORDERED: hydrALAZINE HCL 20 MG/ML VL IV PRN
--- NOTE | 2024-05-22 00:03 | DVHHPRES ---
History of Present Illness Resident Creating Document: DASHAWN CANCINO RESIDENT History of Present Illness Patient is 48 years old female with past medical history of ischemic stroke in right middle cerebral artery, right frontal and temporal lobe, left cerebellum, chronic stroke in cerebellum, diabetes mellitus type 2, hypertension, history of seizure, obesity, history of depression, suspected sleep apnea, history of vitamin-D and vitamin B12 deficiency came with a complaint of generalized weakness and fall. As per patient she has been feeling tired for last 2 days and is getting worse. Patient also reported having to fall today back to back when she was trying to get up from the bed. Patient reports that she tried to get up from the bed but she fell on the floor on her right side with some mild sore on the right shoulder, denied hitting head or losing consciousness. Patient also reported that 2 days before when she was trying to talk to 1 0 for palliative she could not speak well but it resolved later. Patient denied acute chest pain, shortness of breath, dysuria, acute change in speech or vision or acute joint pain or swelling. Initial lab workup revealed versus count 7, hemoglobin 14, platelet 216, sodium 139, potassium 4.5, serum creatinine 0.74, blood sugar 158, lactic acid 0.8, urinalysis negative for UTI. CT head revea led-. No acute intracranial process. Likely large chronic infarct involving the right temporoparietal lobes. There is also a chronic infarct in the left lateral cerebellum. CXR no acute cardiopulmonary disease. on 09/01/2023 revealed-Right frontotemporal lobe and left cerebellar regions of asymmetric hypoattenuation, likely representing age indeterminate infarcts, and new compared to 05/04/2021. If clinically concern for acute ischemia, MRI is recommended for further evaluation. CT angio of the head and neck on 09/01/2023-Negative exam for acute vascular changes of the neck. Normal CTA of the brain. Hypodense changes of the right temporoparietal lobe consistent with subacute ischemic event. MRI of the brain on 09/02/2023-Acute infarct in the right frontal and temporal lobes and left cerebellum. These findings were already communicated to Dr. Doyle by Dr. Chamberlain base on CTA head neck findings from 09/01/2023. Carotid Doppler on 09/02/2023- No hemodynamically significant stenosis noted in the right carotid system. No hemodynamically significant stenosis noted in the left carotid system. Elevated velocity in the right ECA. Echo on 09/02/2023-Low normal limit left ventricular systolic function with mid ejection fraction of 50%. There is a grade 1 diastolic dysfunction.Bubble study was conducted showing no evidence of intra-atrial shunt. On 09/02/2023 KRYSTAL revealed- LVEF 50%. There is mild to moderate concentric left ventricular hypertrophy. grade 1 diastolic dysfunction. No left ventricular mass or thrombus was identified.1. No evidence of cardiac source of embolus was detected in the study -Mild concentric left ventricular hypertrophy in addition to borderline left ventricular systolic function at 50% with moderate mitral valve regurgitation. -Possible arrhythmia like atrial fibrillation still could not be ruled out completely even if the patient presented to the hospital with sinus rhythm. Last event recorder might be warranted. -Possible hypertensive heart disease, with uncontrolled hypertension might also have contributed to her presentation, assessment of other risk factors such as hyperglycemia and hyperlipidemia is important. Past Medical History ischemic stroke in right middle cerebral artery, right frontal and temporal lobe, left cerebellum, chronic stroke in cerebellum, diabetes mellitus type 2, hypertension, history of seizure, obesity, history of depression, suspected sleep apnea, history of vitamin-D and vitamin B12 deficiency Past Social History Patient is a ex-smoker, occasional alcoholic, denied using drugs lately lives at home with daughter Review of Systems Review of Systems Allergy- NKDA Personal History/ Social History- Patient was seen today at the bedside. Reports feeling tired Cardiovascular- deny acute chest pain or shortness of breath or cough or palpitation Respiratory- denies cough or short of breath or wheezing Gastrointestinal- denies any rectal bleeding, nausea or vomiting Musculoskeletal-denies acute joint swelling or tenderness or redness Neurological- denies acute dysarthria, dysphagia, change in vision Psychiatry- denies depression or SI or HI Skin- denies acute rash or purpura Allergies: Coded Allergies: NO KNOWN ALLERGIES (Unverified , 10/01/15) Medications Current Medications Medications Dose Ordered Sig/Reed Route Start Time Stop Time Status Last Admin Dose Admin Sodium Chloride 10 ml Q8HR IV 05/21/24 22:00 05/21/24 22:18 10 ML Temazepam 15 mg QHSP PRN PO 05/21/24 21:15 Ondansetron HCl 4 mg Q4HP PRN IV 05/21/24 21:15 Docusate Sodium 100 mg BIDPRN PRN PO 05/21/24 21:15 Acetaminophen 650 mg Q6HP PRN PO 05/21/24 21:15 Morphine Sulfate 2 mg Q4HPRN PRN IV 05/21/24 21:15 Nitroglycerin 0.4 mg Q5MINP PRN SL 05/21/24 21:15 Morphine Sulfate 2 mg Q30M PRN IV 05/21/24 21:15 Exam Vital Signs Vital Signs Date Time Temp Pulse Resp B/P (MAP) Pulse Ox O2 Delivery O2 Flow Rate FiO2 05/21/24 23:02 86 20 98 Room Air 05/21/24 22:53 99.1 142/72 (95) 99.1 Exam General examination- awake, alert, oriented, conversant HEENT- PEERLA, no acute nasal discharge Cardiovascular- S1-S2 audible, rate and rhythm regular, Respiratory- CTAB, no wheeze or rhonchi Gastrointestinal-nontender, bowel sound+. Nondistended Musculoskeletal-no acute joint swelling or tenderness or redness# Lower extremity- no leg edema Neurological-mildly decreased muscle power in both upper and lower extremity Psychiatry- denies depression or SI or HI Skin- no acute rash or purpura Labs/Xrays Labs Test 05/21/24 22:27 05/21/24 21:34 05/21/24 16:20 05/21/24 16:00 Range/Units Troponin I High Sensitivity 14 </=34 ng/L D-Dimer, Quantitative 0.81 H 0.0-0.49 mg/L FEU Magnesium Level 1.6 1.6-2.6 mg/dL B-Type Natriuretic Peptide 98.46 0-100 pg/mL Thyroid Stimulating Hormone (TSH) 1.70 0.55-4.78 uIU/mL Plasma/Serum Blood Alcohol < 3.0 <10 mg/dL White Blood Count 7.0 4.4-10.8 10^3/uL Red Blood Count 4.67 4.0-5.20 10^6/uL Hemoglobin 14.0 12.2-16.2 g/dL Hematocrit 41.4 36.0-46.0 % Mean Corpuscular Volume 88.7 80.0-100.0 fL Mean Corpuscular Hemoglobin 29.9 28.0-32.0 pg Mean Corpuscular Hemoglobin Concent 33.7 32.0-36.0 g/dL Red Cell Distribution Width 12.8 11.8-14.3 % Platelet Count 216 140-450 10^3/uL Mean Platelet Volume 8.6 6.9-10.8 fL Neutrophils (%) (Auto) 55.1 37.0-80.0 % Lymphocytes (%) (Auto) 34.3 10.0-50.0 % Monocytes (%) (Auto) 8.2 0.0-12.0 % Eosinophils (%) (Auto) 2.0 0.0-7.0 % Basophils (%) (Auto) 0.4 0.0-2.0 % Neutrophils # (Auto) 3.8 1.6-8.6 10 ^3/uL Lymphocytes # (Auto) 2.4 0.4-5.4 10 ^3/uL Monocytes # (Auto) 0.6 0-1.3 10 ^3/uL Eosinophils # (Auto) 0.1 0-0.8 10 ^3/uL Basophils # (Auto) 0 0-0.2 10 ^3/uL Nucleated Red Blood Cells 0.1 % Sodium Level 139 136-145 mmol/L Potassium Level 4.5 3.5-5.1 mmol/L Chloride Level 107 98-107 mmol/L Carbon Dioxide Level 26 20-31 mmol/L Anion Gap 6 5-15 Blood Urea Nitrogen 15 9-23 mg/dL Creatinine 0.74 0.550-1.02 mg/dL Glomerular Filtration Rate Calc 100 >90 mL/min BUN/Creatinine Ratio 20.3 H 10.0-20.0 Serum Glucose 158 H 74-106 mg/dL Lactic Acid Level 0.8 0.4-2.0 mmol/L Calcium Level 9.4 8.7-10.4 mg/dL Urine Color Light-yellow Yellow Urine Clarity Clear Clear Urine pH 5.5 5.0-9.0 Urine Specific [place] 1.029 1.001-1.035 Urine Protein Negative Negative Urine Ketones Negative Negative Urine Blood Negative Negative /uL Urine Nitrite Negative Negative Urine Bilirubin Negative Negative Urine Urobilinogen Normal Negative mg/dL Urine Leukocyte Esterase Negative Negative /uL Urine RBC <1 0 - 4 /hpf Urine WBC <1 0 - 5 /hpf Urine Squamous Epithelial Cells Few <5 /hpf Urine Bacteria Few H None Seen /hpf Urine Mucus Few None Seen Urine Glucose 4+ H Normal mg/dL Test 05/21/24 15:50 Range/Units POC Glucose 169 H 70-106 mg/dl Assessment/Plan Assessment/Plan #Recurrent fall under evaluation, likely due to residual effects from ischemic stroke of the cerebellum and cerebellar #Generalized weakness under evaluation #h/o ischemic stroke in right middle cerebral artery, right frontal and temporal lobe, and left cerebellum #Chronic stroke in cerebellum #Type 2 diabetes, uncontrolled #Essential hypertension, uncontrolled #History of seizures # morbid Obesity, BMI 48.8 #Hypersomnia #Possible sleep apnea #Depression, unspecified -history of cardiac valvular leakage, as per daughter TRACY patient has a scheduled for cardiac catheterization on May 29, 2024 at [facility] 05/21/24- CT head revealed-. No acute intracranial process. Likely large chronic infarct involving the right temporoparietal lobes. There is also a chronic infarct in the left lateral cerebellum. - CXR no acute cardiopulmonary disease Continue aspirin 81 mg daily Continue atorvastatin 40 mg p.o. q.h.s. Continue Plavix 75 mg p.o. daily Continue Jardiance 10 mg p.o. daily Continue lisinopril 10 mg p.o. daily -continue bupropion 75 mg p.o. b.i.d. Continue pantoprazole 40 mg p.o. daily -continue saline sliding scale as prescribed -continue hydralazine 10 mg q.6h p.r.n. Ordered neurology consult for further evaluation and care Orders cartilage consult for further evaluation and care Goals of care/advance care planning; FULL CODE; discussed with the patient >15 minutes PUD prophylaxis: Pantoprazole DVT prophylaxis: Lovenox Plan discussed with Dr. Navas, nursing staff, patient Total time spent on patient evaluation, chart review, assessment and plan, discussion discussion >30 minutes Plan discussed with: Patient Plan discussed with: Patient, Daughter, Other (RN) My Orders Orders - DASHAWN CANCINO RESIDENT Procedure Category Date Status Time Admit ADMIT 05/21/24 Transmitted 21:14 Code Status CODE 05/21/24 Transmitted 21:14 Sodium Chloride Lock PHA 05/21/24 In Process (Saline Lock Ns) 22:00 Temazepam (Restoril) PHA 05/21/24 In Process 21:15 Ondansetron Hcl PHA 05/21/24 In Process (Zofran) 21:15 Docusate Sodium PHA 05/21/24 In Process Capsule (Colace 21:15 Complete Blood Count LAB 05/22/24 Verified 04:00 Comprehensive LAB 05/22/24 Verified Metabolic Panel 04:00 Cardiac DIET 05/22/24 Transmitted Diet-2gna,Lofat,Lochol Breakfast Echo 2d Mode Cardiac US 05/21/24 Logged DOP 21:14 Acetaminophen Tablet PHA 05/21/24 In Process (Tylenol Tablet) 21:15 Morphine Sulfate PHA 05/21/24 In Process Injection 21:15 Nitroglycerin PHA 05/21/24 In Process Sublingual (Ntrostat 21:15 Morphine Sulfate PHA 05/21/24 In Process Injection 21:15 Oxygen By Nasal RT 05/21/24 Transmitted Cannula 21:14 Stat Ekg For Chest [facility] 05/21/24 In Process Pain 21:14 Notify Of Changes [facility] 05/21/24 In Process From Base 21:14 Open Shank Coverer For [facility] 05/21/24 In Process 24 Hours 21:14 Emergency Dysrhythmia [facility] 05/21/24 In Process Protocol 21:14 Rhythm Strips Once [facility] 05/21/24 In Process Every Shift 21:14 Drug Screen LAB 05/21/24 Logged 21:14 Chest Xray 1 View XY 05/21/24 Resulted 21:14 Troponin-I Hs LAB 05/22/24 Verified 00:14 Transfer Orders XFER 05/21/24 Transmitted 21:46 Aspirin Enteric PHA 05/22/24 In Process Coated Tablet 10:00 Atorvastatin (Lipitor) PHA 05/22/24 In Process 22:00 Bupropion Tablet PHA 05/22/24 In Process (Wellbutrin Tablet) 07:00 Clopidogrel Bisulfate PHA 05/22/24 In Process (Plavix) 10:00 Cyanocobalamin PHA 05/22/24 In Process (Vitamin B-12) 10:00 Empagliflozin PHA 05/22/24 Logged (Jardiance) 10:00 Ergocalciferol PHA 05/21/24 Logged (Vitamin D 50,000 23:45 Lisinopril Tablet PHA 05/22/24 In Process (Zestril Tablet) 10:00 Pantoprazole Tablet PHA 05/21/24 Logged (Protonix Tablet) 23:45 Pantoprazole Tablet PHA 05/22/24 Logged (Protonix Tablet) 06:00 R Shoulder 2+ View XY 05/21/24 Logged Xray 23:46 R Hip Complete Xray XY 05/21/24 Logged 23:46 L Hip Complete Xray XY 05/21/24 Logged 23:46 * Neurology Consult CONS 05/21/24 Transmitted 23:49 * Cardiology Consult CONS 05/21/24 Transmitted 23:49 Glucose Blood PHA 05/22/24 In Process (Accu-Chek Comfort 07:00 Insulin R (Human) PHA 05/22/24 Logged (Insulin R) 07:00 Dextrose 50% Syringe PHA 05/22/24 In Process 00:00 * Picking Tech CONS 05/21/24 Transmitted Consult Pt Request For Service PT 05/21/24 Transmitted 23:52 Hydralazine Injection PHA 05/22/24 Verified (Apresoline Inject 00:00 Date of Service: May 21, 2024 Billing Provider: ALVAREZ NAVAS MD Common Visit Codes: [id number] INP/OBS CARE (HIGH) DASHAWN CANCINO RESIDENT May 22, 2024 00:03 ALVAREZ NAVAS MD May 24, 2024 18:31
[2024-05-22] MEDS: PANTOPRAZOLE 40 MG TAB PO ONE (01:05)
[2024-05-22] MEDS: MAGNESIUM SULFATE 1GM/100ML 100 ML IV ONE (01:05)
[2024-05-22] MEDS: ERGOCALCIFEROL 50,000 UNIT(1.25MG) CAP PO SCH (01:44)
[2024-05-22] MEDS: ACETAMINOPHEN 325 MG TAB PO PRN (06:18)
[2024-05-22] MEDS: ACCU-CHEK COMFORT CURVE STRIP VI SCH (07:00)
[2024-05-22] MEDS: InsuLIN REG 1unit/0.01ml Soln (100units/ml) SC SCH (07:00)
[2024-05-22 07:28] LABS: Basophils # (auto) 0 10 ^3/uL (0-0.2); Basophils % (auto) 0.5 % (0.0-2.0); Eosinophils # (auto) 0.1 10 ^3/uL (0-0.8); Eosinophils % (auto) 1.6 % (0.0-7.0); Hematocrit 40.2 % (36.0-46.0); Hemoglobin 13.6 g/dL (12.2-16.2); Lymphocytes # (auto) 1.8 10 ^3/uL (0.4-5.4); Lymphocytes % (auto) 24.2 % (10.0-50.0); Mean Corpuscular Hemoglobin 29.8 pg (28.0-32.0); Mean Corpuscular Hgb Conc. 33.9 g/dL (32.0-36.0); Monocytes # (auto) 0.6 10 ^3/uL (0-1.3); Monocytes % (auto) 8.6 % (0.0-12.0); Neutrophils # (auto) 4.9 10 ^3/uL (1.6-8.6); Neutrophils % (auto) 65.1 % (37.0-80.0); Platelet Count (auto) 220 10^3/uL (140-450); Red Blood Cells 4.57 10^6/uL (4.0-5.20); Red Cell Distribution Width 12.8 % (11.8-14.3); White Blood Cell 7.5 10^3/uL (4.4-10.8)
[2024-05-22 07:31] LABS: Alanine Aminotransferase 14 U/L (7-40); Alkaline Phosphatase 82 U/L (46-116); Anion Gap 10 (5-15); BUN/Creatinine Ratio 18.8 (10.0-20.0); Blood Urea Nitrogen 13 mg/dL (9-23); Calcium 9.2 mg/dL (8.7-10.4); Carbon Dioxide 22 mmol/L (20-31); Potassium 3.8 mmol/L (3.5-5.1); Sodium 140 mmol/L (136-145)
[2024-05-22 07:32] LABS: Albumin 3.6 g/dL (3.2-4.8); Bilirubin, Total 0.4 mg/dL (0.2-1.0); Total Protein 6.7 g/dL (5.7-8.2)
[2024-05-22 07:34] LABS: Aspartate Aminotransferase 10 U/L (13-40); Chloride 108 mmol/L (98-107); Folate (Folic Acid) 10.99 ng/mL (>5.38); Glucose 123 mg/dL (74-106)
--- NOTE | 2024-05-22 08:30 | DVH ---
CLINICAL INDICATION: Trauma TECHNIQUE: 3 radiographic views of the left hip were obtained. Comparison: None FINDINGS/IMPRESSION: There is no evidence of acute fracture or dislocation. The visualized joint space is well maintained. The alignment is anatomical. There is no radiopaque foreign body.
--- NOTE | 2024-05-22 08:32 | DVH ---
CLINICAL INDICATION: HISTORY OF FALL, RIGHT SHOULDER SORE TECHNIQUE: XY R SHOULDER 2+ VIEW XRAY Comparison: None FINDINGS/IMPRESSION: There is no evidence of acute fracture or dislocation. The visualized joint space is well maintained. The alignment is anatomical. There is no radiopaque foreign body.
--- NOTE | 2024-05-22 08:33 | DVH ---
CLINICAL INDICATION: HISTORY OF FALL TECHNIQUE: XY R HIP COMPLETE XRAY, Comparison: None FINDINGS/IMPRESSION: There is no evidence of acute fracture or dislocation. The visualized joint space is well maintained. The alignment is anatomical. There is no radiopaque foreign body.
[2024-05-22] MEDS: EMPAGLIFLOZIN 10 MG TAB PO SCH (09:54)
[2024-05-22] MEDS: CYANOCOBALAMIN 500 MCG TAB PO SCH (09:54)
[2024-05-22] MEDS: buPROPion HCL 75 MG TAB PO SCH (09:54)
[2024-05-22] MEDS: LISINOPRIL 5 MG TAB PO SCH (09:54)
[2024-05-22] MEDS: CLOPIDOGREL BISULFATE 75 MG TAB PO SCH (09:54)
[2024-05-22] MEDS: ASPirin-EC 81 mg tab PO SCH (09:55)
[2024-05-22] MEDS: ENOXAPARIN SOD 40 MG/0.4 ML SYRINGE SC SCH (09:56)
[2024-05-22] MEDS ORDERED: DEXTROSE (50%) 50ML SYRG IV ONE (13:00)
--- NOTE | 2024-05-22 13:09 | DVHSR ---
APPROVED REPORT EXAM: Two-dimensional and M-mode echocardiogram with Doppler and color Doppler. Blood Pressure: 128/71 mmHg INDICATION Syncope RULE OUT VALVULAR DISEASE RISK FACTORS Obesity: Height: 5'9, Weight: 334 DIMENSIONS LVDd5.1 (3.8-5.7cm)LA (2D)4.2 (1.9-4.0cm)Aortic Root3.5 (2.0-3.7cm) LVDs3.4 (2.5-4.0cm)LA (MM) (1.9-4.0cm)Aortic Cusp Exc1.7 (1.5-2.0cm) EF (%) 60.0 (55-70%)Rt. Atrium3.5 (1.9-4.0cm)Asc. Aorta3.1 cm IVSd1.0 (0.7-1.1cm)RV (D) (1.8-2.4cm) PWd1.3 (0.7-1.1cm) Mitral Valve MitralMitral Stenosis E wave1.11m/sMV Mean GR.mmHg A wave1.39m/sMV Peak GR.107mmHg E/A ratio0.82D MVAcm2 DECEL [id number] 1/2 Timems Aortic Valve Aortic ValveAortic Stenosis V10.97m/Julian Mean GR.5mmHg V21.46m/Julian Peak GR.8mmHg LVOT Diameter2.1 (1.8-2.4cm)Doppler AVA2.30cm2 Pulmonic Valve V20.83m/s Conclusion lvef 55% moderate left atirum enlarged moderate MR (noted on zabrina) not well vsiualized on this echo
--- NOTE | 2024-05-22 13:16 | DVHINCON2 ---
Date Seen: May 22, 2024 Referring Physician MD [place] resident Reason for Consultation History of valvular leakage, history of ischemic strokes History of Present Illness This is a 48-year-old female patient who presents to emergency room with chief complaint of generalized weakness with multiple falls at home. The patient states that she was brought in the emergency room by her daughter for further evaluation. Cardiology has now been consulted for previous history of "valvular leakage and ischemic stroke". Initial twelve lead electrocardiogram reveals normal sinus rhythm without any significant ST segment changes. Significant past medical history includes hypertension, seizures, CVA (on Plavix and ASA), sci-mmtgqiw-zuvdefwgn type 2 diabetes mellitus, obstructive sleep apnea, obesity, tobacco use, and previous amphetamine use. The patient was seen at this facility in August 2023 in which the patient was confirmed to have a cerebrovascular accident. A transthoracic at that time revealed EF of 50% with moderately severe tricuspid valve regurgitation. On 09/02/23, the patient underwent a transesophageal echocardiogram which revealed no cardiac source of embolus with an EF 50% and moderate mitral valve regurgitation and mild tricuspid valve regurgitation. The patient reports following up with a cutter apprentice hand at [facility] and is scheduled for a follow up on May 29, 2024. Past Medical History Past medical history reviewed. No other significant than mentioned above. Past Surgical History Cholecystectomy Family History: Diabetes mellitus G8 MOTHER G8 FATHER FH: CHF (congestive heart failure) G8 MOTHER G8 FATHER Family History Family history reviewed. Social History Patient has a 15 pack-year history, currently reports smoking 4-5 cigarettes per day Patient denies any alcohol use Patient denies any illicit drug use, previous toxicology report positive for amphetamine use Allergies: Coded Allergies: NO KNOWN ALLERGIES (Unverified , 10/01/15) Home Meds Active Scripts Montelukast Sodium (Singulair) 10 Mg Tab, 10 MG PO DAILY PRN, #30 TAB Prov:FLORIDALMA MEJIAP 12/30/23 Promethazine-Dm (Promethazine Dm 6.25-15 mg/5Ml) 1 Jenny Jenny, 10 ML PO TID PRN, #240 ML Prov:FLORIDALMA MEJIA [employer] 12/30/23 Lancets (Freestyle Lancets) Lancets Mis, AC XX ACHS, #120 2 Refills ACHS Prov:NIURKA MONTGOMERY RESIDENT 09/04/23 Blood Glucose Monitoring Suppl (EASY TOUCH GLUCOSE MONITO) Monitor Kit, AC XX ACHS PRN, #1 2 Refills ACHS Prov:NIURKA MONTGOMERY RESIDENT 09/04/23 Empagliflozin (Jardiance) 10 Mg Tab, 10 MG PO DAILY for 30 Days, #30 TAB 2 Refills Prov:NIURKA MONTGOMERY RESIDENT 09/04/23 Metformin Hydrochloride (Metformin Hcl) 500 Mg Tab, 1 TAB PO BID for 30 Days, #60 TAB 3 Refills Prov:NIURKA MONTGOMERY RESIDENT 09/04/23 Lisinopril (Lisinopril) 5 Mg Tab, 10 MG PO DAILY for 30 Days, #60 TAB 2 Refills Prov:NIURKA MONTGOMERY [facility] 09/04/23 Ergocalciferol (VITAMIN D 81049 UNIT) 50,000 [place], [address] UNIT PO Q7D for 90 Days, #12 CAP Prov:NIURKA MONTGOMERY [facility] 09/04/23 Cyanocobalamin (Gnp Vitamin B12) 500 Mcg Tab, 500 MCG PO DAILY for 30 Days, #30 TAB 2 Refills Prov:NIURKA MONTGOMERY [facility] 09/04/23 Clopidogrel Bisulfate (CLOPIDOGREL) 75 Mg Tab, 75 MG PO DAILY for 21 Days, #21 TAB Prov:NIURKA MONTGOMERY [facility] 09/04/23 Bupropion Hcl (Bupropion Hcl) 75 Mg Tab, 75 MG PO BID@07,19 for 30 Days, #60 TAB 2 Refills Prov:NIURKA MONTGOMERY [facility] 09/04/23 Atorvastatin Calcium (ATORVASTATIN CALCIUM) 20 Mg Tab, 40 MG PO HS for 30 Days, #60 TAB 2 Refills Prov:NIURKA MONTGOMERY [facility] 09/04/23 Aspirin (Aspir-Low) 81 Mg Tab, 81 MG PO DAILY for 30 Days, #30 TAB 2 Refills Prov:NIURKA MONTGOMERY [facility] 09/04/23 Home Meds Home medications reviewed. Current Medications Current Medications Medications (Trade) Dose Ordered Sig/Reed Route PRN Reason Start Time Stop Time Status Last Admin Sodium Chloride (Saline Lock Ns) 10 ml Q8HR IV 05/21/24 22:00 05/22/24 06:21 Temazepam (Restoril) 15 mg QHSP PRN PO FOR INSOMNIA 05/21/24 21:15 Ondansetron HCl (Zofran) 4 mg Q4HP PRN IV NAUSEA / VOMITING 05/21/24 21:15 Docusate Sodium (Colace Capsule) 100 mg BIDPRN PRN PO FOR CONSTIPATION 05/21/24 21:15 Acetaminophen (Tylenol Tablet) 650 mg Q6HP PRN PO PAIN SCALE 1-3 OR TEMP>100.4 05/21/24 21:15 05/22/24 06:18 Morphine Sulfate 2 mg Q4HPRN PRN IV SEVERE PAIN (7-10 PAIN SCALE) 05/21/24 21:15 Nitroglycerin (Ntrostat Sublingual) 0.4 mg Q5MINP PRN SL FOR CHEST PAIN 05/21/24 21:15 Morphine Sulfate 2 mg Q30M PRN IV FOR CHEST PAIN 05/21/24 21:15 Aspirin (Ecotrin Enteric Coated Tablet) 81 mg DAILY PO 05/22/24 10:00 05/22/24 09:55 Atorvastatin Calcium (Lipitor) 40 mg HS PO 05/22/24 22:00 Bupropion HCl (Wellbutrin Tablet) 75 mg BID@07,19 PO 05/22/24 07:00 05/22/24 09:54 Clopidogrel Bisulfate (Plavix) 75 mg DAILY PO 05/22/24 10:00 05/22/24 09:54 Cyanocobalamin (Vitamin B-12) 500 mcg DAILY PO 05/22/24 10:00 05/22/24 09:54 Empaglifozin (Jardiance) 10 mg DAILY PO 05/22/24 10:00 05/22/24 09:54 Ergocalciferol (Vitamin D 50,000 Unit) 50,000 unit Q7D PO 05/22/24 02:00 05/22/24 01:44 Lisinopril (Zestril Tablet) 10 mg DAILY PO 05/22/24 10:00 05/22/24 09:54 Pantoprazole Sodium (Protonix Tablet) 40 mg DAILY@0600 PO 05/23/24 06:00 Diagnostic Test (Pha) (Accu-Chek Comfort Curve T) 1 strip ACHS 05/22/24 07:00 Insulin Human Regular (InsuLIN R) ACHS SC 05/22/24 07:00 Dextrose 50 ml UD PRN IV Blood Sugar LESS THAN 60 05/22/24 00:00 Hydralazine HCl (Apresoline Injection) 10 mg Q6HP PRN IV SBP>150 05/22/24 00:00 Enoxaparin Sodium (Lovenox) 40 mg DAILY SC 05/22/24 10:00 05/22/24 09:56 Insulin Glargine (Lantus) 16 units HS SC 05/22/24 22:00 Review of Systems Constitutional: Generalized weakness Ears, Nose, & Throat: No symptom reported Eyes: No symptom reported Neurological: No symptoms reported Pulmonary/Respiratory: No symptoms reported Cardiovascular: No symptom reported Gastrointestinal: No symptom reported Genitourinary: No symptom reported Musculoskeletal: No symptom reported Skin: No symptom reported Psychiatric: No symptom reported Endocrine: No symptom reported Hematologic/Lymphatic: No symptom reported Vital Signs Vital Signs Date Time Temp Pulse Resp B/P (MAP) Pulse Ox O2 Delivery O2 Flow Rate FiO2 05/22/24 09:54 133/68 05/22/24 09:00 98.4 63 20 96 98.4 05/22/24 08:00 Room Air* 0 21 Physical Exam General Appearance: Cooperative. Morbidly obese Pulmonary/Respiratory: Clear, bilateral breaths sounds. Cardiovascular/Chest: Regular rate and rhythm. Peripheral Pulses: 2+ Radial (R). 2+ Radial (L). 2+ Pedal (R). 2+ Pedal (L) Abdominal Exam: Normal bowel sounds. Ankle Exam: Negative ankle edema Lower extremities: Negative lower extremity edema Neuro/Mental Status: A/OX4, coherent. Thoughts/Psych: Normal thought pattern. Appropriate mood and affect. Good judgment and insight. Appearance: No acute distress. Skin Exam: Normal inspection. Normal color. Warm and dry. Labs/Diagnostic Data Labs Test 05/22/24 11:18 05/22/24 05:41 05/21/24 21:34 05/21/24 16:20 Range/Units POC Glucose 137 H 70-106 mg/dl White Blood Count 7.5 4.4-10.8 10^3/uL Red Blood Count 4.57 4.0-5.20 10^6/uL Hemoglobin 13.6 12.2-16.2 g/dL Hematocrit 40.2 36.0-46.0 % Mean Corpuscular Volume 88.0 80.0-100.0 fL Mean Corpuscular Hemoglobin 29.8 28.0-32.0 pg Mean Corpuscular Hemoglobin Concent 33.9 32.0-36.0 g/dL Red Cell Distribution Width 12.8 11.8-14.3 % Platelet Count 220 140-450 10^3/uL Mean Platelet Volume 9.1 6.9-10.8 fL Neutrophils (%) (Auto) 65.1 37.0-80.0 % Lymphocytes (%) (Auto) 24.2 10.0-50.0 % Monocytes (%) (Auto) 8.6 0.0-12.0 % Eosinophils (%) (Auto) 1.6 0.0-7.0 % Basophils (%) (Auto) 0.5 0.0-2.0 % Neutrophils # (Auto) 4.9 1.6-8.6 10 ^3/uL Lymphocytes # (Auto) 1.8 0.4-5.4 10 ^3/uL Monocytes # (Auto) 0.6 0-1.3 10 ^3/uL Eosinophils # (Auto) 0.1 0-0.8 10 ^3/uL Basophils # (Auto) 0 0-0.2 10 ^3/uL Nucleated Red Blood Cells 0.0 % Sodium Level 140 136-145 mmol/L Potassium Level 3.8 3.5-5.1 mmol/L Chloride Level 108 H 98-107 mmol/L Carbon Dioxide Level 22 20-31 mmol/L Anion Gap 10 5-15 Blood Urea Nitrogen 13 9-23 mg/dL Creatinine 0.69 0.550-1.02 mg/dL Glomerular Filtration Rate Calc 107 >90 mL/min BUN/Creatinine Ratio 18.8 10.0-20.0 Serum Glucose 123 H 74-106 mg/dL Hemoglobin A1c 6.0 H <5.7 % A1C Calcium Level 9.2 8.7-10.4 mg/dL Total Bilirubin 0.4 0.2-1.0 mg/dL Aspartate Amino Transferase (AST) 10 L 13-40 U/L Alanine Aminotransferase (ALT) 14 7-40 U/L Alkaline Phosphatase 82 46-116 U/L Troponin I High Sensitivity 10 </=34 ng/L Total Protein 6.7 5.7-8.2 g/dL Albumin 3.6 3.2-4.8 g/dL Vitamin B12 Level 343 211-911 pg/mL Folic Acid 10.99 >5.38 ng/mL D-Dimer, Quantitative 0.81 H 0.0-0.49 mg/L FEU Magnesium Level 1.6 1.6-2.6 mg/dL B-Type Natriuretic Peptide 98.46 0-100 pg/mL Thyroid Stimulating Hormone (TSH) 1.70 0.55-4.78 uIU/mL Plasma/Serum Blood Alcohol < 3.0 <10 mg/dL Lactic Acid Level 0.8 0.4-2.0 mmol/L Test 05/21/24 16:00 Range/Units Urine Color Light-yellow Yellow Urine Clarity Clear Clear Urine pH 5.5 5.0-9.0 Urine Specific [place] 1.029 1.001-1.035 Urine Protein Negative Negative Urine Ketones Negative Negative Urine Blood Negative Negative /uL Urine Nitrite Negative Negative Urine Bilirubin Negative Negative Urine Urobilinogen Normal Negative mg/dL Urine Leukocyte Esterase Negative Negative /uL Urine RBC <1 0 - 4 /hpf Urine WBC <1 0 - 5 /hpf Urine Squamous Epithelial Cells Few <5 /hpf Urine Bacteria Few H None Seen /hpf Urine Mucus Few None Seen Urine Glucose 4+ H Normal mg/dL Assessment Mitral valve regurgitation, moderate degree Tricuspid valve regurgitation, mild degree Hypertension Seizures History of cerebrovascular accident (on Plavix and ASA) Type 2 diabetes mellitus Obstructive sleep apnea History of amphetamine abuse Morbid obesity Plan/Recommendation We will continue with the following plan/recommendations (Dr. Gonzalez): A transthoracic echocardiogram on this admission reveals an EF of 55% with mo derate mitral valve regurgitation as previously seen on KRYSTAL from previous admission. Case reviewed and discussed with Dr. Gonzalez. Continue with BP control and lipid-lowering agent. There is no further inpatient cardiac workup indicated at this time. The patient is scheduled to follow up with her cutter apprentice hand at [facility] on May 29, 2024. Thank you for allowing us to care for this patient. Please call with any questions or concerns. Critical care time spent: 40 minutes This medical document was created using an electronic medical record system with voice recognition software and computerized dictation system. Although this document has been carefully reviewed, there might still be some phonetic and typographical errors. Occasional wrong-word or ``sound-alike substitutions may have occurred due to the inherent limitations of voice recognition software. These areas are purely typographical due to imperfections of the software programs and do not reflect any compromise in the patient's medical care. Please read the chart carefully and recognize, using context, where these substitutions have occurred. Plan discussed with: Patient Date of Service: May 22, 2024 Billing Provider: JENNI CARRASCO Cardiology Common Codes: 05030-PAJMMVD INP/OBS CARE (High) Cardiology Consultation Codes: [id number] CONSULT <45MIN JENNI CARRASCO May 22, 2024 13:16
[2024-05-22] MEDS: ACCU-CHEK COMFORT CURVE STRIP VI ONE (13:22)
[2024-05-22] MEDS: InsuLIN REG 1unit/0.01ml Soln (100units/ml) SC ONE (13:22)
[2024-05-22] MEDS: ATORVASTATIN 20 MG TAB PO SCH (21:43)
[2024-05-22] MEDS: INSULIN LANTUS (GLARGINE) 1 /0.01ml (100units/ml) SC SCH (21:43)
--- NOTE | 2024-05-22 21:45 | DVHPNRES ---
Progress Note Date Seen: May 22, 2024 Resident Creating Document: JAKE VILLAFUERTE RESIDENT Medical Necessity Reason Pt with a Central, PICC or Fol: No Medical Necessity Reason frequent falls history of CVA Subjective Review of Systems This is a 48 years old female with past medical history significant for ischemic stroke in right middle cerebral artery, right frontal and temporal lobe, left cerebellum, chronic stroke in cerebellum, diabetes mellitus type 2, hypertension, history of seizure, obesity, history of depression, suspected sleep apnea, history of vitamin-D and vitamin B12 deficiency presented to the ED a complaint of generalized weakness and fall on 05/21/2024 morning. Per patient, she has been feeling tired for last 2 days and is getting worse. Patient also reported having fall today back to back when she was trying to get up from the bed. Patient reports that she tried to get up from the bed but she fell on the floor on her right side with some mild sore on the right shoulder, denied hitting head or losing consciousness. Patient also reported that 2 days prior, she had diffculties articulationg her words, but that later resolved. She denied palpitation, sweating,dizziness, acute chest pain, shortness of breath, dysuria, acute change in speech or vision or acute joint pain or swelling. Initial lab workup revealed wbc: 7, Hgb: 14, platelet 216, sodium 139, potassium 4.5, cr: 0.74, blood sugar 158, lactic acid 0.8, urinalysis negative for UTI. CT head revealed-. No acute intracranial process. Likely large chronic infarct involving the right temporoparietal lobes. There is also a chronic infarct in the left lateral cerebellum. CXR no acute cardiopulmonary disease. Per her medical report, on 09/01/2023 revealed-Right frontotemporal lobe and left cerebellar regions of asymmetric hypoattenuation, likely representing age indeterminate infarcts, and new compared to 05/04/2021. CT angio of the head and neck on 09/01/2023-Negative exam for acute vascular changes of the neck. Normal CTA of the brain. Hypodense changes of the right temporoparietal lobe consistent with subacute ischemic event. MRI of the brain on 09/02/2023-Acute infarct in the right frontal and temporal lobes and left cerebellum. These findings were already communicated to Dr. Doyle by Dr. Chamberlain base on CTA head neck findings from 09/01/2023. Carotid Doppler on 09/02/2023- No hemodynamically significant stenosis noted in the right carotid system. No hemodynamically significant stenosis noted in the left carotid system. Elevated velocity in the right ECA. Echo on 09/02/2023-Low normal limit left ventricular systolic function with mid ejection fraction of 50%. There is a grade 1 diastolic dysfunction.Bubble study was conducted showing no evidence of intra-atrial shunt. On 09/02/2023 KRYSTAL revealed- LVEF 50%. There is mild to moderate concentric left ventricular hypertrophy. grade 1 diastolic dysfunction. No left ventricular mass or thrombus was identified.1. No evidence of cardiac source of embolus was detected in the study -Mild concentric left ventricular hypertrophy in addition to borderline left ventricular systolic function at 50% with moderate mitral valve regurgitation. -Possible arrhythmia like atrial fibrillation still could not be ruled out completely even if the patient presented to the hospital with sinus rhythm. Last event recorder might be warranted. -Possible hypertensive heart disease, with uncontrolled hypertension might also have contributed to her presentation, assessment of other risk factors such as hyperglycemia and hyperlipidemia is important. Constitutional: Denies fever no chills no feeling of malaise HEENT: Denies headache, ear pain, ear discharges, conjunctivitis, nasal discharge throat pain Cardiovascular: Denies chest pain, palpitation, orthopnea, PND, or pedal edema Respiratory: Denies shortness of breath, cough cough, sputum production, hemoptysis, GI: Denies abdominal pain, nausea, vomiting, diarrhea, hematemesis, hematochezia, : Denies frequency, urgency, hematuria, Endocrine: Denies unintentional weight gain or weight loss, feeling of hot flashes, Carter: Denies easy bruising, bleeding disorders, epistaxis Musculoskeletal: Denies joint pains, muscle aches Psych: No evidence of depression, fabiana, suicidal ideation Past Medical History: Per HPI Past Social History: APPENDECTOMY AT THE AGE OF 12 Social history: Patient is a ex-smoker, occasional alcoholic, denied using drugs lately lives at home with daughter Objective vital signs Vital Sign Date Time Temp Pulse Resp B/P (MAP) Pulse Ox O2 Delivery O2 Flow Rate FiO2 05/22/24 16:45 98.0 74 18 146/61 (89) 99 98.0 05/22/24 08:00 Room Air* 0 21 Total Intake and Output 05/21/24 05/21/24 05/22/24 15:00 23:00 07:00 Intake Total 100 ml Balance 100 ml medications Current Medications Medications Dose Ordered Sig/Reed Route Start Time Stop Time Status Last Admin Dose Admin Sodium Chloride 10 ml Q8HR IV 05/21/24 22:00 05/22/24 14:14 10 ML Temazepam 15 mg QHSP PRN PO 05/21/24 21:15 Ondansetron HCl 4 mg Q4HP PRN IV 05/21/24 21:15 Docusate Sodium 100 mg BIDPRN PRN PO 05/21/24 21:15 Acetaminophen 650 mg Q6HP PRN PO 05/21/24 21:15 05/22/24 14:58 650 MG Morphine Sulfate 2 mg Q4HPRN PRN IV 05/21/24 21:15 Nitroglycerin 0.4 mg Q5MINP PRN SL 05/21/24 21:15 Morphine Sulfate 2 mg Q30M PRN IV 05/21/24 21:15 Aspirin 81 mg DAILY PO 05/22/24 10:00 05/22/24 09:55 81 MG Atorvastatin Calcium 40 mg HS PO 05/22/24 22:00 Bupropion HCl 75 mg BID@07,19 PO 05/22/24 07:00 05/22/24 19:12 75 MG Clopidogrel Bisulfate 75 mg DAILY PO 05/22/24 10:00 05/22/24 09:54 75 MG Cyanocobalamin 500 mcg DAILY PO 05/22/24 10:00 05/22/24 09:54 500 MCG Empaglifozin 10 mg DAILY PO 05/22/24 10:00 05/22/24 09:54 10 MG Ergocalciferol 50,000 unit Q7D PO 05/22/24 02:00 05/22/24 01:44 50,000 UNIT Lisinopril 10 mg DAILY PO 05/22/24 10:00 05/22/24 09:54 10 MG Pantoprazole Sodium 40 mg DAILY@0600 PO 05/23/24 06:00 Diagnostic Test (Pha) 1 strip ACHS 05/22/24 07:00 05/22/24 19:03 1 STRIP Insulin Human Regular ACHS SC 05/22/24 07:00 05/22/24 19:05 2 UNITS Dextrose 50 ml UD PRN IV 05/22/24 00:00 Hydralazine HCl 10 mg Q6HP PRN IV 05/22/24 00:00 Enoxaparin Sodium 40 mg DAILY SC 05/22/24 10:00 05/22/24 09:56 40 MG Insulin Glargine 16 units HS SC 05/22/24 22:00 Examination General examination- Not in acute distress HEENT: PEERLA, no acute nasal discharge,speech sounded nasal to me,a little sluggish Chest: S1-S2 audible, rate and rhythm regular, no murmur Lung: CTAB, no wheeze or rhonchi Abdomen: Nondistend, BS+, nontenderness, no organomegaly Musculoskeletal: no acute joint swelling or tenderness Lower extremity: no leg edema Neurological: cranial nerves intact, no acute dysarthria or dysphagia, Motor examination: 5/5 in all limbs; Sensory: intact Psychiatry-- Normal mood and affect Skin- no acute rash or purpura laboratory and microbiology Laboratory Tests 05/22/24 05:41 Test 05/22/24 05:41 Range/Units Serum Glucose 123 H 74-106 mg/dL Problem List/Assessment/Plan Problem List/Assessment/Plan Current weakness and falls rule out stroke --> h/o ischemic stroke in right middle cerebral artery, right frontal and temporal lobe, and left cerebellum --> CT head: No acute intracranial process. Likely large chronic infarct involving the right temporoparietal lobes. There is also a chronic infarct in the left lateral cerebellum. -> orthostatic BP --> Neuro checks per protocol --> Tele monitoring --> PT for evaluation Type 2 diabetes, uncontrolled --> mild sliding scale ACHS Mild --> Lantus 16 HsS --> Continue jardiance Morbid Obesity, --> BMI 48.8 --> rule out OHS Hypertension --> Continue home antihypertesive medicaiton Hypersomnia --> recommend sleep studies --> rule otu possible sleep apnea Depression, unspecified --> out patient evaluation -history of cardiac valvular leakage, as per daughter TRACY patient has a scheduled for cardiac catheterization on May 29, 2024 at [facility] Code status: Full code plan For possible discharge home tomorrow after PT Goal of care discussed more than 35 minutes. Case and plan discussed with Dr. Macedo Plan discussed with: Patient My Orders My Orders Orders - MORVEY,JAKE RESIDENT Procedure Category Date Status Time Orthostatic Vital ORDERS 05/22/24 Transmitted Signs 12:58 Neuro Checks Per Unit ORDERS 05/22/24 Transmitted Protocol 12:58 Insulin Lantus PHA 05/22/24 In Process (Glargine) (Lantus) 22:00 Date of Service: May 22, 2024 Billing Provider: BERTA DILLON MD Common Visit Codes: [id number] INP/OBS CARE(HIGH) JAKE VILLAFUERTE May 22, 2024 21:45 BERTA DILLON MD May 25, 2024 09:11
--- NOTE | 2024-05-22 22:38 | DVH ---
Bilateral lower extremity venous duplex Clinical History: rule out dvt Comparison: US BILAT LOWER DVT on DOS: 09/02/23 Technique: Duplex Doppler evaluation of the deep venous systems of both lower extremities from the common femora l veins to the popliteal veins including color Doppler and spectral/pulsed waveform analysis was perf ormed. Findings: RIGHT SIDE: The common femoral vein demonstrates appropriate compressibility and waveform variability. There is compressibility/patency of the great saphenous vein at the proximal thigh. The femoral vein demonstrates appropriate compressibility and waveform variability. The deep femoral vein demonstrates appropriate compressibility and waveform variability. The popliteal vein demonstrates appropriate compressibility and waveform variability. There is normal compressibility at the tibioperoneal trunk. LEFT SIDE: The common femoral vein demonstrates appropriate compressibility and waveform variability. There is compressibility/patency of the great saphenous vein at the proximal thigh. The femoral vein demonstrates appropriate compressibility and waveform variability. The deep femoral vein demonstrates appropriate compressibility and waveform variability. The popliteal vein demonstrates appropriate compressibility and waveform variability. There is normal compressibility at the tibioperoneal trunk. Impression: 1. No right or left femoropopliteal venous thrombosis.
[2024-05-23] VITALS (8 sets, daily range): BP systolic 112–153; BP diastolic 48–82; PULSE 79–101; RESP 17–19; TEMP 37; O2SAT 92–99
[2024-05-23] MEDS: PANTOPRAZOLE 40 MG TAB PO SCH (05:52)
--- NOTE | 2024-05-23 06:57 | ECG ---
[facility] Test Date: 2024-05-21 Test Time: 15:54:02 Pat Name: CARYL KELLER Department: ER Room: 0285T Gender: F Mounter Hand: MICHELLE : 1975 Requested By: PRISCILA CLIFFORD Order Number: [id number] Reading MD: Measurements Intervals [place] Rate: 78 P: 66 MD: 151 QRS: 82 QRSD: 98 T: 81 QT: 402 QTc: 458 Interpretive Statements Sinus rhythm Borderline T wave abnormalities Please click the below link to view image of tracing.
[2024-05-23 07:06] LABS: Chloride 105 mmol/L (98-107); Sodium 138 mmol/L (136-145)
[2024-05-23 07:07] LABS: Anion Gap 8 (5-15); Carbon Dioxide 25 mmol/L (20-31)
[2024-05-23 07:08] LABS: Calcium 9.4 mg/dL (8.7-10.4)
[2024-05-23 07:13] LABS: BUN/Creatinine Ratio 16.9 (10.0-20.0); Blood Urea Nitrogen 14 mg/dL (9-23); Magnesium 1.7 mg/dL (1.6-2.6)
[2024-05-23 07:21] LABS: Glucose 145 mg/dL (74-106)
--- NOTE | 2024-05-23 15:57 | DVHDSRES ---
Discharge Summary Date of Admission Resident Creating Document: NIURKA MONTGOMERY RESIDENT May 21, 2024 at 21:14 Date of Discharge: May 23, 2024 Admitting Diagnosis Autonomic dysfunction Labs/Diagnostic Data: Laboratory Results Test 05/23/24 11:49 05/23/24 06:03 05/22/24 05:41 05/21/24 21:34 POC Glucose 196 mg/dl (70-106) Sodium Level 138 mmol/L (136-145) Potassium Level 4.0 mmol/L (3.5-5.1) Chloride Level 105 mmol/L (98-107) Carbon Dioxide Level 25 mmol/L (20-31) Anion Gap 8 (5-15) Blood Urea Nitrogen 14 mg/dL (9-23) Creatinine 0.83 mg/dL (0.550-1.02) Glomerular Filtration Rate Calc 87 mL/min (>90) BUN/Creatinine Ratio 16.9 (10.0-20.0) Serum Glucose 145 mg/dL (74-106) Calcium Level 9.4 mg/dL (8.7-10.4) Magnesium Level 1.7 mg/dL (1.6-2.6) White Blood Count 7.5 10^3/uL (4.4-10.8) Red Blood Count 4.57 10^6/uL (4.0-5.20) Hemoglobin 13.6 g/dL (12.2-16.2) Hematocrit 40.2 % (36.0-46.0) Mean Corpuscular Volume 88.0 fL (80.0-100.0) Mean Corpuscular Hemoglobin 29.8 pg (28.0-32.0) Mean Corpuscular Hemoglobin Concent 33.9 g/dL (32.0-36.0) Red Cell Distribution Width 12.8 % (11.8-14.3) Platelet Count 220 10^3/uL (140-450) Mean Platelet Volume 9.1 fL (6.9-10.8) Neutrophils (%) (Auto) 65.1 % (37.0-80.0) Lymphocytes (%) (Auto) 24.2 % (10.0-50.0) Monocytes (%) (Auto) 8.6 % (0.0-12.0) Eosinophils (%) (Auto) 1.6 % (0.0-7.0) Basophils (%) (Auto) 0.5 % (0.0-2.0) Neutrophils # (Auto) 4.9 10 ^3/uL (1.6-8.6) Lymphocytes # (Auto) 1.8 10 ^3/uL (0.4-5.4) Monocytes # (Auto) 0.6 10 ^3/uL (0-1.3) Eosinophils # (Auto) 0.1 10 ^3/uL (0-0.8) Basophils # (Auto) 0 10 ^3/uL (0-0.2) Nucleated Red Blood Cells 0.0 % Hemoglobin A1c 6.0 % A1C (<5.7) Total Bilirubin 0.4 mg/dL (0.2-1.0) Aspartate Amino Transferase (AST) 10 U/L (13-40) Alanine Aminotransferase (ALT) 14 U/L (7-40) Alkaline Phosphatase 82 U/L (46-116) Troponin I High Sensitivity 10 ng/L (</=34) Total Protein 6.7 g/dL (5.7-8.2) Albumin 3.6 g/dL (3.2-4.8) Vitamin B12 Level 343 pg/mL (211-911) Folic Acid 10.99 ng/mL (>5.38) D-Dimer, Quantitative 0.81 mg/L FEU (0.0-0.49) B-Type Natriuretic Peptide 98.46 pg/mL (0-100) Thyroid Stimulating Hormone (TSH) 1.70 uIU/mL (0.55-4.78) Plasma/Serum Blood Alcohol < 3.0 mg/dL (<10) Test 05/21/24 16:20 05/21/24 16:00 Lactic Acid Level 0.8 mmol/L (0.4-2.0) Urine Color Light-yellow (Yellow) Urine Clarity Clear (Clear) Urine pH 5.5 (5.0-9.0) Urine Specific Mcdowell 1.029 (1.001-1.035) Urine Protein Negative (Negative) Urine Ketones Negative (Negative) Urine Blood Negative /uL (Negative) Urine Nitrite Negative (Negative) Urine Bilirubin Negative (Negative) Urine Urobilinogen Normal mg/dL (Negative) Urine Leukocyte Esterase Negative /uL (Negative) Urine RBC <1 /hpf (0 - 4) Urine WBC <1 /hpf (0 - 5) Urine Squamous Epithelial Cells Few /hpf (<5) Urine Bacteria Few /hpf (None Seen) Urine Mucus Few (None Seen) Urine Glucose 4+ mg/dL (Normal) Other Laboratory Tests 05/23/24 06:03 05/22/24 05:41 Brief Hx & Hospital Course: This is a 48 years old female with past medical history significant for ischemic stroke in right middle cerebral artery, right frontal and temporal lobe, left cerebellum, chronic stroke in cerebellum, diabetes mellitus type 2, hypertension, history of seizure, obesity, history of depression, suspected sleep apnea, history of vitamin-D and vitamin B12 deficiency presented to the ED a complaint of generalized weakness and fall on 05/21/2024 morning. Per patient, she has been feeling tired for last 2 days and is getting worse. Patient also reported having fall today back to back when she was trying to get up from the bed. Patient reports that she tried to get up from the bed but she fell on the floor on her right side with some mild sore on the right shoulder, denied hitting head or losing consciousness. Patient also reported that 2 days prior, she had diffculties articulationg her words, but that later resolved. She denied palpitation, sweating,dizziness, acute chest pain, shortness of breath, dysuria, acute change in speech or vision or acute joint pain or swelling. Initial lab workup revealed wbc: 7, Hgb: 14, platelet 216, sodium 139, potassium 4.5, cr: 0.74, blood sugar 158, lactic acid 0.8, urinalysis negative for UTI. CT head revealed-. No acute intracranial process. Likely large chronic infarct involving the right temporoparietal lobes. There is also a chronic infarct in the left lateral cerebellum. CXR no acute cardiopulmonary disease. Patient has had significant clinical improvement throughout her hospitalization, head CT was unremarkable, only showed chronic infarct. Orthostatic vitals demonstrated orthostatic hypotension, we will hold lisinopril. Patient stated feeling better than on admission, she denied any current chest pain, shortness of breath, dizziness, lightheadedness, any new neurological deficit, abdominal pain, nausea, vomiting. She is currently tolerating diet, ambulatory without assistance. Physical examination as below: General examination- Not in acute distress HEENT: PEERLA, no acute nasal discharge,speech sounded nasal to me,a little sluggish Chest: S1-S2 audible, rate and rhythm regular, no murmur Lung: CTAB, no wheeze or rhonchi Abdomen: Nondistend, BS+, nontenderness, no organomegaly Musculoskeletal: no acute joint swelling or tenderness Lower extremity: no leg edema Neurological: cranial nerves intact, no acute dysarthria or dysphagia, Motor examination: 5/5 in all limbs; Sensory: intact Psychiatry-- Normal mood and affect Skin- no acute rash or purpura Discharge plan: Patient will be DC home on continue home medications as prescribed. We will hold lisinopril. Recommended to follow with PCP within 1-2 weeks. Counseled on lifestyle modifications. Counseled her on fall precautions. Counseled her on polypharmacy. She verbalized understanding and agree with this plan, we spent over 30 minutes explained the plan. Case and plan discussed with Dr. Oodm Consults/Reason for consult Cardiology was consulted due to history of valvular leakage Operations or Procedures [place] [address] Ph: [phone] DIAGNOSTIC IMAGING Diagnostic Imaging Report : [id number] Signed PATIENT: CARYL KELLER ACCT: [id number] UNIT: [id number] : 1975 LOC: ER ROOM / BED: / AGE / SEX: 48 / F ADM STATUS: REG ER SERVICE 1555 ORDERING PHYSICIAN: PRISCILA CLIFFORD MD PROCEDURE(s): HWOCT - HEAD WITHOUT CONTRAST REASON: CONFUSION ORDER NUMBER(s): [id number], ACCESSION NUMBER(s): [id number] EXAM: CT HEAD WITHOUT CONTRAST HISTORY: CONFUSION COMPARISON: CT HEAD WITHOUT CONTRAST on DOS: 09/17/23, MRI BRAIN HEAD WO CONTRAST on DOS: 09/02/23 TECHNIQUE: Axial images of the head were obtained and reformatted in coronal and sagittal planes. All CT scans at this medical facility are performed using dose modulation techniques as appropriate to a performed exam including the following: Automated exposure control was utilized; adjustment of the MA and/or KV according to patient size; and use of iterative reconstruction technique. CT Dose: CTDI volume is 69 mGy. Dose-length product is 1228 mGy*cm FINDINGS: There is large area of encephalomalacia involving the right temporal and right parietal lobe. This probably relates to chronic infarct. There is also chronic infarct in the left lateral cerebellum with associated encephalomalacia. There is no evidence of acute intracranial hemorrhage, mass, mass effect midline shift. There is no hydrocephalus or extra-axial fluid collection. Delete the There are retention cysts in the left maxillary sinus. The remaining visualized paranasal sinuses and mastoid air cells are clear. The calvarium is intact. IMPRESSION: 1. No acute intracranial process. 2. Likely large chronic infarct involving the right temporoparietal lobes. There is also a chronic infarct in the left lateral cerebellum. HS:Y ATED BY: COLLIN GONZALEZ MD DICTATED DATE/TIME: 05/21/241629 SIGNED BY: COLLIN GONZALEZ MD SIGNED DATE/TIME: 05/21/241629 CC: [place] [address] Ph: [phone] DIAGNOSTIC IMAGING Diagnostic Imaging Report : [id number] Signed PATIENT: CARYL KELLER ACCT: [id number] UNIT: [id number] : 1975 LOC: [facility] ROOM / BED: [address] [place] [address] AGE / SEX: 48 / F ADM STATUS: ADM IN SERVICE 13 ORDERING PHYSICIAN: DASHAWN CANCINO RESIDENT PROCEDURE(s): CXR1 - CHEST XRAY 1 VIEW REASON: Rule out pneumonia ORDER NUMBER(s): [id number], ACCESSION NUMBER(s): [id number] CHEST RADIOGRAPH Indication: Rule out pneumonia Technique: Single frontal view of the chest was obtained Comparison: CHEST PORTABLE on DOS: 05/03/21 FINDINGS: Lines and Tubes: None Lungs: Clear Pleura: No effusion. No pneumothorax. Cardiomediastinal contours: Unremarkable Bones: Unremarkable IMPRESSION: 1. Clear lungs. ATED BY: ROSALIA QUINTANA DO DICTATED DATE/TIME: 05/21/242142 SIGNED BY: ROSALIA QUINTANA DO SIGNED DATE/TIME: 05/21/242142 CC: [place] [address] Ph: [phone] DIAGNOSTIC IMAGING Diagnostic Imaging Report : [id number] Signed PATIENT: CARYL KELLER ACCT: [id number] UNIT: [id number] : 1975 LOC: [facility] AGE / SEX: 48 / F ADM STATUS: ADM IN SERVICE 2346 ORDERING PHYSICIAN: DASHAWN CANCINO PROCEDURE(s): RHIP - R HIP COMPLETE XRAY REASON: HISTORY OF FALL ORDER NUMBER(s): [id number], ACCESSION NUMBER(s): [id number] CLINICAL INDICATION: HISTORY OF FALL TECHNIQUE: XY R HIP COMPLETE XRAY, Comparison: None FINDINGS/IMPRESSION: There is no evidence of acute fracture or dislocation. The visualized joint space is well maintained. The alignment is anatomical. There is no radiopaque foreign body. ATED BY: VERONICA CHEN MD DICTATED DATE/TIME: 05/22/24830 SIGNED BY: VERONICA CHEN MD SIGNED DATE/TIME: 05/22/24830 CC: [place] [address] Ph: [phone] DIAGNOSTIC IMAGING Diagnostic Imaging Report : [id number] Signed PATIENT: CARYL KELLER ACCT: [id number] UNIT: [id number] : 1975 LOC: [facility] AGE / SEX: 48 / F ADM STATUS: ADM IN SERVICE 2346 ORDERING PHYSICIAN: DASHAWN CANCINO PROCEDURE(s): LHIP - L HIP COMPLETE XRAY REASON: HISTORY OF FALL ORDER NUMBER(s): [id number], ACCESSION NUMBER(s): [id number] CLINICAL INDICATION: Trauma TECHNIQUE: 3 radiographic views of the left hip were obtained. Comparison: None FINDINGS/IMPRESSION: There is no evidence of acute fracture or dislocation. The visualized joint space is well maintained. The alignment is anatomical. There is no radiopaque foreign body. ATED BY: CRISTAL LOPEZ MD DICTATED DATE/TIME: 05/22/24828 SIGNED BY: CRISTAL LOPEZ MD SIGNED DATE/TIME: 05/22/24828 CC: [place] [id number] Ph: [phone] DIAGNOSTIC IMAGING Diagnostic Imaging Report : [id number] Signed PATIENT: CARYL KELLER ACCT: [id number] UNIT: [id number] : 1975 LOC: [facility] ROOM / BED: [address] [place] [address] AGE / SEX: 48 / F ADM STATUS: ADM IN SERVICE 234 ORDERING PHYSICIAN: DASHAWN CANCINO PROCEDURE(s): RSHD2 - R SHOULDER 2+ VIEW XRAY REASON: HISTORY OF FALL, RIGHT SHOULDER SORE ORDER NUMBER(s): [id number], ACCESSION NUMBER(s): [id number] CLINICAL INDICATION: HISTORY OF FALL, RIGHT SHOULDER SORE TECHNIQUE: XY R SHOULDER 2+ VIEW XRAY Comparison: None FINDINGS/IMPRESSION: There is no evidence of acute fracture or dislocation. The visualized joint space is well maintained. The alignment is anatomical. There is no radiopaque foreign body. ATED BY: VERONICA CHEN MD DICTATED DATE/TIME: 05/22/24829 SIGNED BY: VERONICA CHEN MD SIGNED DATE/TIME: 05/22/24829 CC: [address] [address] Ph: [phone] DIAGNOSTIC IMAGING Diagnostic Imaging Report : [id number] Signed PATIENT: CARYL KELLER ACCT: [id number] UNIT: [id number] : 1975 LOC: [facility] ROOM / BED: [address] [place] [address] AGE / SEX: 48 / F ADM STATUS: ADM IN SERVICE 42 ORDERING PHYSICIAN: JAKE VILLAFUERTE PROCEDURE(s): BLDVT - BiLat Lower DVT REASON: rule out dvt ORDER NUMBER(s): [id number], ACCESSION NUMBER(s): [id number] Bilateral lower extremity venous duplex Clinical History: rule out dvt Comparison: US BILAT LOWER DVT on DOS: 09/02/23 Technique: Duplex Doppler evaluation of the deep venous systems of both lower extremities from the common femoral veins to the popliteal veins including color Doppler and spectral/pulsed waveform analysis was performed. Findings: RIGHT SIDE: The common femoral vein demonstrates appropriate compressibility and waveform variability. There is compressibility/patency of the great saphenous vein at the proximal thigh. The femoral vein demonstrates appropriate compressibility and waveform variability. The deep femoral vein demonstrates appropriate compressibility and waveform variability. The popliteal vein demonstrates appropriate compressibility and waveform variability. There is normal compressibility at the tibioperoneal trunk. LEFT SIDE: The common femoral vein demonstrates appropriate compressibility and waveform variability. There is compressibility/patency of the great saphenous vein at the proximal thigh. The femoral vein demonstrates appropriate compressibility and waveform variability. The deep femoral vein demonstrates appropriate compressibility and waveform variability. The popliteal vein demonstrates appropriate compressibility and waveform variability. There is normal compressibility at the tibioperoneal trunk. Impression: 1. No right or left femoropopliteal venous thrombosis. ATED BY: АННА BUITRAGO Jr., DO DICTATED DATE/TIME: 05/22/242235 SIGNED BY: АННА BUITRAGO Jr., SIGNED DATE/TIME: 05/22/242235 CC: [place] [address] Ph: [phone] DIAGNOSTIC IMAGING Diagnostic Imaging Report : [id number] Signed PATIENT: CARYL KELLER ACCT: [id number] UNIT: [id number] : 1975 LOC: [facility] ROOM / BED: [address] [place] [address] AGE / SEX: 48 / F ADM STATUS: ADM IN SERVICE 13 ORDERING PHYSICIAN: DASHAWN CANCINO RESIDENT PROCEDURE(s): ECIDC - ECHO 2D MODE CARDIAC DOP REASON: Syncope, rule out valvular disease or hypokinesia ORDER NUMBER(s): [id number], ACCESSION NUMBER(s): [id number] APPROVED REPORT EXAM: Two-dimensional and M-mode echocardiogram with Doppler and color Doppler. Blood Pressure: 128/71 mmHg INDICATION Syncope RULE OUT VALVULAR DISEASE RISK FACTORS Obesity: Height: 5'9, Weight: 334 DIMENSIONS LVDd 5.1 (3.8-5.7cm) LA (2D) 4.2 (1.9-4.0cm) Aortic Root 3.5 (2.0- 3.7cm) LVDs 3.4 (2.5-4.0cm) LA (MM) (1.9-4.0cm) Aortic Cusp Exc 1.7 (1.5- 2.0cm) EF (%) 60.0 (55-70%) Rt. Atrium 3.5 (1.9-4.0cm) Asc. Aorta 3.1 cm IVSd 1.0 (0.7-1.1cm) RV (D) (1.8-2.4cm) PWd 1.3 (0.7-1.1cm) Mitral Valve Mitral Mitral Stenosis E wave 1.11m/s MV Mean GR. mmHg A wave 1.39m/s MV Peak GR. 107mmHg E/A ratio 0.8 2D MVA cm2 DECEL Time 291ms PRESS 1/2 Time ms Aortic Valve Aortic Valve Aortic Stenosis V1 0.97m/s AO Mean GR. 5mmHg V2 1.46m/s AO Peak GR. 8mmHg LVOT Diameter 2.1 (1.8-2.4cm) Doppler NEGRITA 2.30cm2 Pulmonic Valve V2 0.83m/s Conclusion lvef 55% moderate left atirum enlarged moderate MR (noted on zabrina) not well vsiualized on this echo SIGNED BY: SIENNA MOSHER MD SIGNED DATE/TIME: 05/22/24 1307 CC: Condition at Discharge: Guarded Final Diagnosis/Problems List weakness and falls ruled out stroke, likely autonomic dysfunction, medication side effect Type 2 diabetes, uncontrolled Morbid Obesity, Hypertension Hypersomnia Depression, unspecified -history of cardiac valvular leakage, Discharge Disposition: Home Discharge Instruct/Medications Diet: Cardiac 2g Na,low cholest Activity: No Restrictions, As Tolerated Follow Up/Referral: fu with pcp in 1 week Medications: continue home meds as prescribed in emr stop lisinopril Discharge Statement: "Patient was advised to return to the ER or call 911 if any headaches, dizziness, shortness of breath, chest pain, abdominal pain, bleeding, fevers, or worsening of medical condition. Patient was counseled about treatment plan, medications, possible side effects, patientverbalized understanding. All questions were answered to the best of my ability. This discharge took greater then 30 minutes in planning, reviewing documentation, counseling the patient, and discussing with other team members." ASSESSMENT ASSESSMENT Assessment autonomic dysfunction Date of Service: May 23, 2024 Billing Provider: YARELI ODOM MD Common Visit Codes: 87023-ACB/OBS DISCH DAY >30min NIURKA MONTGOMERY RESIDENT May 23, 2024 15:57 YARELI ODOM MD May 23, 2024 20:26
== END 2024-05-23 16:30 | disposition home or self-care (01) | DRG 48 ==
LOC: EEVIPCON 15:22 → ER 15:22 → TELE 21:14 → TELE-WESTW 23:42
PROVIDERS: ADMIT Internal Medicine; ATTEND Emergency Medicine
DX: G90.89 Other disorders of autonomic nervous system (principal); E53.8 Deficiency of other specified B group vitamins; E86.0 Dehydration; G47.10 Hypersomnia, unspecified; F32.A Depression, unspecified; G47.33 Obstructive sleep apnea (adult) (pediatric); G40.909 Epilepsy, unspecified, not intractable, without status epilepticus; E66.01 Morbid (severe) obesity due to excess calories; I10 Essential (primary) hypertension; F15.10 Other stimulant abuse, uncomplicated; I08.1 Rheumatic disorders of both mitral and tricuspid valves; Z86.73 Personal history of transient ischemic attack (TIA), and cerebral infarction without residual deficits; Z83.3 Family history of diabetes mellitus; Z90.49 Acquired absence of other specified parts of digestive tract; Z68.42 Body mass index [BMI] 45.0-49.9, adult; Z82.49 Family history of ischemic heart disease and other diseases of the circulatory system
CPT/HCPCS: 36415; 70450; 71045; 73030; 73502; 80048; 80053; 80320; 81001; 82607; 82746; 82962; 83036; 83605; 83735; 83880; 84443; 84484; 85025; 85379; 93005; 93306; 93970; 97163; G0378; J1815

== ENCOUNTER 2024-09-24 20:08 | Inpatient (IN) | payer MEDICAID ==
[~2024-09-24] VITALS: Ht 175.3 cm; Wt 133.4 kg
[~2024-09-24 20:08] MED LIST changes: -LISI-275 PO
--- NOTE | 2024-09-24 20:31 | ED.PDOC ---
HPI Comments 48-year-old female came to ER for chest pain. Patient states for the past 2 hours, she has been experiencing substernal chest pains, aching, dull, radiating to her neck and back area. Noted to be short of breath. Denies any nausea or vomiting. Persistence of chest pains prompted patient to come to the ER Chief Complaint: Chest Pain Time Seen by MD: 20:30 Primary Care Provider: ANASTASIYA Reviewed Notes: Nurses Notes Allergies: Coded Allergies: NO KNOWN ALLERGIES (Unverified , 10/01/15) Home Meds Active Scripts Montelukast Sodium (Singulair) 10 Mg Tab, 10 MG PO DAILY PRN, #30 TAB Prov:FLORIDALMA MEJIA [employer]EE JAVA DEVELOPER 12/30/23 Promethazine-Dm (Promethazine Dm 6.25-15 mg/5Ml) 1 Jenny Jenny, 10 ML PO TID PRN, #240 ML Prov:FLORIDALMA MEJIA [employer] JAVA DEVELOPER 12/30/23 Lancets (Freestyle Lancets) Lancets Mis, AC XX ACHS, #120 2 Refills ACHS Prov:NIURKA MONTGOMERY RESIDENT 09/04/23 Blood Glucose Monitoring Suppl (EASY TOUCH GLUCOSE MONITO) Monitor Kit, AC XX ACHS PRN, #1 2 Refills ACHS Prov:NIURKA MONTGOMERY RESIDENT 09/04/23 Empagliflozin (Jardiance) 10 Mg Tab, 10 MG PO DAILY for 30 Days, #30 TAB 2 Refills Prov:NIURKA MONTGOMERY [facility] 09/04/23 Metformin Hydrochloride (Metformin Hcl) 500 Mg Tab, 1 TAB PO BID for 30 Days, #60 TAB 3 Refills Prov:NIURKA MONTGOMERY [facility] 09/04/23 Ergocalciferol (VITAMIN D 88139 UNIT) 50,000 [place], [address] UNIT PO Q7D for 90 Days, #12 CAP Prov:NIURKA MONTGOMERY [facility] 09/04/23 Cyanocobalamin (Gnp Vitamin B12) 500 Mcg Tab, 500 MCG PO DAILY for 30 Days, #30 TAB 2 Refills Prov:NIURKA MONTGOMERY [facility] 09/04/23 Clopidogrel Bisulfate (CLOPIDOGREL) 75 Mg Tab, 75 MG PO DAILY for 21 Days, #21 TAB Prov:NIURKA MONTGOMERY [facility] 09/04/23 Bupropion Hcl (Bupropion Hcl) 75 Mg Tab, 75 MG PO BID@07,19 for 30 Days, #60 TAB 2 Refills Prov:NIURKA MONTGOMERY RESIDENT 09/04/23 Atorvastatin Calcium (ATORVASTATIN CALCIUM) 20 Mg Tab, 40 MG PO HS for 30 Days, #60 TAB 2 Refills Prov:MORRO DELCIDNIURKA RESIDENT 09/04/23 Aspirin (Aspir-Low) 81 Mg Tab, 81 MG PO DAILY for 30 Days, #30 TAB 2 Refills Prov:MORRO DELCIDNIURKA RESIDENT 09/04/23 Information Source: Patient Mode of Arrival: Ambulatory Severity: Moderate Timing: Hours (2) Duration: Since onset Prehospital treatment: None Location: Substernal Radiation: Back, Neck Quality: Other (aching) Onset: With Light Exertion Cardiac Risk Factors: Hyperlipidemia, Diabetes Modifying Factors: Nothing Associated Signs and Symptoms: SOB Past Medical History PAST MEDICAL HISTORY: CVA, DM, High Lipids, HTN, Seizures Surgical History: BTL, Cholecystectomy, FORENSIC DNA ANALYST History: No Pertinent FORENSIC DNA ANALYST History Family History Family History: Reviewed,noncontributory to illness Social History Smoker: Non-Smoker Alcohol: Denies ETOH Use Drugs: Denies Drug Use Lives In: Home Constitutional: denies: chills, diaphoresis, fatigue, fever, malaise, sweats, weakness, others EENTM: denies: blurred vision, double vision, ear bleeding, ear discharge, ear drainage, ear pain, ear ringing, eye pain, eye redness, hearing loss, mouth pain, mouth swelling, nasal discharge, nose bleeding, nose congestion, nose pain, photophobia, tearing, throat pain, throat swelling, voice changes, others Respiratory: reports: shortness of breath; denies: cough, hemoptysis, orthopnea, SOB at rest, SOB with excertion, stridor, wheezing, others Cardiovascular: reports: chest pain; denies: dizzy spells, diaphoresis, Dyspnea on exertion, edema, irregular heart beat, left arm pain, lightheadedness, palpitations, PND, syncope, others Gastrointestinal: denies: abdomen distended, abdominal pain, blood streaked bowels, constipated, diarrhea, dysphagia, difficulty swallowing, hematemesis, melena, nausea, poor appetite, poor fluid intake, rectal bleeding, rectal pain, vomiting, others Genitourinary: denies: abnormal vagina bleeding, burning, dyspareunia, dysuria, flank pain, frequency, hematuria, incontinence, pain, , vagina discharge, urgency, others Neurological: denies: dizziness, fainting, headache, left sided numbness, left sided weakness, numbness, paresthesia, pre-existing deficit, right sided numbness, right sided weakness, seizure, speech problems, tingling, tremors, weakness, others Musculoskeletal: reports: back pain; denies: gout, joint pain, joint swelling, muscle pain, muscle stiffness, neck pain, others Integumetry: denies: bruises, change in color, change in hair/nails, dryness, laceration, lesions, lumps, rash, wounds, others Allergic/Immunocompromised: denies: Difficulty Healing, Frequent Infections, Hives, Itching, others Hematologic/Lymphatic: denies: anemia, blood clots, easy bleeding, easy bruising, swollen glands, others Endocrine: denies: excessive hunger, excessive sweating, excessive thirst, excessive urination, flushing, intolerance to cold, intolerance to heat, unexplained weight gain, unexplained weight loss, others Psychiatric: denies: anxiety, bipolar disorder, depression, hopeless, panic disorder, schizophrenia, sleepless, suicidal, others Physical Exam General Appearance: No Apparent Distress, Normal HEENT: Normal ENT Inspection, Pharynx Normal, TMs Normal Neck: Full Range of Motion, Non-Tender, Normal, Normal Inspection Respiratory: Chest Non-Tender, Lungs Clear, No Accessory Muscle Use, No Respiratory Distress, Normal Breath Sounds Cardiovascular: No Edema, No JVD, No Murmur, No Gallop, Normal Peripheral Pulses, Regular Rate/Rhythm Breast Exam: Deferred Gastrointestinal: No Organomegaly, Non Tender, No Pulsatile Mass, Normal Bowel Sounds, Soft Genitalia: Deferred Pelvic: Deferred Rectal: Deferred Extremities: No calf tenderness, Normal capillary refill, Normal inspection, Normal range of motion, Non-tender, No pedal edema Musculoskeletal : Apperance: Normal Neurologic: Alert, rental salesperson II-XII nml as Tested, No Motor Deficits, Normal Affect, Normal Mood, No Sensory Deficits Cerebellar Function: Normal Reflexes: Normal Skin: Dry, Normal Color, Warm Lymphatic: No Adenopathy Was a procedure done? Was a procedure done?: No CP Differential Dx Differential Diagnosis: Angina, Anxiety / Panic Attack Differential Diagnosis: Angina, Chest Wall Pain, Costochondritis, Esophageal reflux/spasm, Gastritis, Myocardial Infarction, Pneumonia X-Ray, Labs, Meds, VS Vital Signs Date Time Temp Pulse Resp B/P (MAP) Pulse Ox O2 Delivery O2 Flow Rate FiO2 09/24/24 20:14 96 09/24/24 20:12 98.9 91 20 177/92 (120) 99 98.9 Lab Test 09/24/24 21:00 09/24/24 20:18 Range/Units Troponin I High Sensitivity 4 4 </=34 ng/L White Blood Count 7.9 4.4-10.8 10^3/uL Red Blood Count 4.39 4.0-5.20 10^6/uL Hemoglobin 12.9 12.2-16.2 g/dL Hematocrit 37.8 36.0-46.0 % Mean Corpuscular Volume 85.9 80.0-100.0 fL Mean Corpuscular Hemoglobin 29.4 28.0-32.0 pg Mean Corpuscular Hemoglobin Concent 34.3 32.0-36.0 g/dL Red Cell Distribution Width 12.8 11.8-14.3 % Platelet Count 207 140-450 10^3/uL Mean Platelet Volume 9.5 6.9-10.8 fL Neutrophils (%) (Auto) 55.4 37.0-80.0 % Lymphocytes (%) (Auto) 33.2 10.0-50.0 % Monocytes (%) (Auto) 7.7 0.0-12.0 % Eosinophils (%) (Auto) 3.2 0.0-7.0 % Basophils (%) (Auto) 0.5 0.0-2.0 % Neutrophils # (Auto) 4.6 1.6-8.6 10 ^3/uL Lymphocytes # (Auto) 2.7 0.4-5.4 10 ^3/uL Monocytes # (Auto) 0.6 0-1.3 10 ^3/uL Eosinophils # (Auto) 0.3 0-0.8 10 ^3/uL Basophils # (Auto) 0 0-0.2 10 ^3/uL Nucleated Red Blood Cells 0.1 % Sodium Level 135 L 136-145 mmol/L Potassium Level 3.9 3.5-5.1 mmol/L Chloride Level 102 98-107 mmol/L Carbon Dioxide Level 24 20-31 mmol/L Anion Gap 9 5-15 Blood Urea Nitrogen 12 9-23 mg/dL Creatinine 0.77 0.550-1.02 mg/dL Glomerular Filtration Rate Calc 95 >90 mL/min BUN/Creatinine Ratio 15.6 10.0-20.0 Serum Glucose 238 H 74-106 mg/dL Calcium Level 9.2 8.7-10.4 mg/dL CHEST RADIOGRAPH Indication: chest pain Technique: Single frontal view of the chest was obtained COMPARISON: XY CHEST XRAY 1 VIEW on DOS: 05/21/24 FINDINGS: Lines and Tubes: None Lungs: Clear Pleura: No effusion. No pneumothorax. Cardiomediastinal contours: Unremarkable Bones: Unremarkable IMPRESSION: No abnormality. Time of 1ST Reevaluation: 20:28 Reevaluation 1ST: Unchanged Patient Education/Counseling: Diagnosis, Treatment Family Education/Counseling: No Family Present Departure 1 Departure Time of Disposition: 22:34 (Patient presented with chest pain that was concerning for possible STEMI, ACS, PE, Pneumonia, Muscle Strain, COPD, Dissection. Data: 1. I ordered and reviewed the result of at least 3 labs includ ing a CBC, BMP, and Troponin. 2. I independently interpreted the following tests: EKG which shows sinus arrhythmia and Chest X-ray which shows benign chest.Risk:This patient has a high risk of morbidity due to further diagnostic testing or treatment and may suffer from an acute cardiac or respiratory disorder. Workup reveals concern for ACS and patient should be admitted for further workup and possible expert consultation. ) Impression: Primary Impression: Acute chest pain Additional Impression: Shortness of breath Disposition: ADMITTED INPATIENT Admit to: Med Surg Condition: Serious Critical Care Note Critical Care Time?: Yes (35 min-critical care time only) Critical care comment: Acute chest pains Authorized and Performed by: Caro Oh MD Total critical care time: Approximately 34 minutes Due to a high probability of clinically significant, life threatening deterioration, the patient required my highest level of preparedness to intervene emergently and I personally spent this critical care time directly and personally managing the patient. This critical care time included obtaining a history; examining the patient; pulse oximetry; ordering and review of studies; arranging urgent treatment with development of a management plan; evaluation of patient's response to treatment; frequent reassessment; and, discussions with other providers. This critical care time was performed to assess and manage the high probability of imminent, life-threatening deterioration that could result in multi-organ failure. It was exclusive of separately billable procedures and treating other patients and teaching time. Please see my other sections and the rest of the note for further information on patient assessment and treatment. Stability Stability form required: No Heart Score Heart Score: Heart Score Response (Comments) Value History Moderate Suspicious 1 EKG Normal 0 Age 45-64 1 Risk Factors >3 or Hx ASHD 2 Troponin Normal limit 0 Total 4 I personally scribed [facility] on 09/24/24 at 20:31. Electronically submitted by Estrada Joseph ([employer]). I personally scribed for CARO OH MD [facility] on 09/24/24 at 22:16. Electronically submitted by Estrada Joseph ([employer]). CARO OH MD Sep 24, 2024 20:31
[2024-09-24 20:44] LABS: Basophils # (auto) 0 10 ^3/uL (0-0.2); Hematocrit 37.8 % (36.0-46.0); Hemoglobin 12.9 g/dL (12.2-16.2); Mean Corpuscular Hemoglobin 29.4 pg (28.0-32.0); Mean Corpuscular Hgb Conc. 34.3 g/dL (32.0-36.0); Mean Corpuscular Volume 85.9 fL (80.0-100.0); Nucleated Red Blood Cells % 0.1 %; Platelet Count (auto) 207 10^3/uL (140-450); Red Blood Cells 4.39 10^6/uL (4.0-5.20); Red Cell Distribution Width 12.8 % (11.8-14.3); White Blood Cell 7.9 10^3/uL (4.4-10.8)
[2024-09-24 20:59] LABS: Chloride 102 mmol/L (98-107); Potassium 3.9 mmol/L (3.5-5.1)
[2024-09-24 21:00] LABS: Anion Gap 9 (5-15); Carbon Dioxide 24 mmol/L (20-31)
[2024-09-24 21:01] LABS: Calcium 9.2 mg/dL (8.7-10.4)
[2024-09-24 21:05] LABS: BUN/Creatinine Ratio 15.6 (10.0-20.0); Blood Urea Nitrogen 12 mg/dL (9-23)
--- NOTE | 2024-09-24 21:19 | DVH ---
CHEST RADIOGRAPH Indication: chest pain Technique: Single frontal view of the chest was obtained COMPARISON: XY CHEST XRAY 1 VIEW on DOS: 05/21/24 FINDINGS: Lines and Tubes: None Lungs: Clear Pleura: No effusion. No pneumothorax. Cardiomediastinal contours: Unremarkable Bones: Unremarkable IMPRESSION: No abnormality.
[2024-09-24 21:32] LABS: Glucose 238 mg/dL (74-106); Sodium 135 mmol/L (136-145)
[2024-09-24 21:54] LABS: Lymphocytes % (auto) 33.2 % (10.0-50.0); Monocytes % (auto) 7.7 % (0.0-12.0)
[2024-09-24 21:55] LABS: Basophils % (auto) 0.5 % (0.0-2.0); Eosinophils % (auto) 3.2 % (0.0-7.0)
[2024-09-24 21:56] LABS: Lymphocytes # (auto) 2.7 10 ^3/uL (0.4-5.4); Neutrophils # (auto) 4.6 10 ^3/uL (1.6-8.6)
[2024-09-24 21:57] LABS: Eosinophils # (auto) 0.3 10 ^3/uL (0-0.8); Monocytes # (auto) 0.6 10 ^3/uL (0-1.3)
[2024-09-24 22:15] LABS: Neutrophils % (auto) 55.4 % (37.0-80.0)
[2024-09-24] MEDS ORDERED: ACETAMINOPHEN 325 MG TAB PO PRN (23:00)
[2024-09-24] MEDS ORDERED: ONDANSETRON HCL 4 MG/2 ML VIAL IV PRN (23:00)
[2024-09-24] MEDS ORDERED: NITROGLYCERIN 0.4 MG SL TAB SL PRN (23:00)
[2024-09-24] MEDS ORDERED: DEXTROSE (50%) 50ML SYRG IV PRN (23:00)
[2024-09-24] MEDS ORDERED: MORPHINE SULFATE INJ 2 MG/ml SYRG IV PRN (23:00)
[2024-09-25] VITALS (13 sets, daily range): BP systolic 132–167; BP diastolic 54–83; PULSE 65–101; RESP 17–75; TEMP 97.4–98.7; O2SAT 93–99
[2024-09-25 00:06] LABS: Triglycerides 140 mg/dL (< 150)
[2024-09-25 00:07] LABS: LDL Cholesterol 43 mg/dL (< 100)
[2024-09-25 00:08] LABS: Cholesterol 103 mg/dL (< 200); HDL Cholesterol 42 mg/dL (40-59)
--- NOTE | 2024-09-25 00:37 | DVHHP2 ---
History of Present Illness Reason for Visit: Chest pain History of Present Illness 48-year-old presents for chest pain. Patient endorses a one day history substernal chest pain sharp in nature with radiation to her neck and her back. UTI reports mild shortness for breath. She states episode lasted approximately 30 minutes. Other acute complaints reported. Past Medical History Hypertension, dyslipidemia, diabetes mellitus, CVA Past Surgical History Cholecystectomy, Family History Noncontributory Smoke: No ALCOHOL: none Drugs: None Lives: with Family Review of Systems Review of Systems Review of systems are currently negative otherwise addressed in HPI. Allergies: Coded Allergies: NO KNOWN ALLERGIES (Unverified , 10/01/15) Medications Current Medications Medications Dose Ordered Sig/Reed Route Start Time Stop Time Status Last Admin Dose Admin Atorvastatin Calcium 40 mg HS PO 09/25/24 22:00 Lisinopril 40 mg DAILY PO 09/25/24 10:00 Aspirin 81 mg DAILY PO 09/25/24 10:00 Clopidogrel Bisulfate 75 mg DAILY PO 09/25/24 10:00 Diagnostic Test (Pha) 1 strip ACHS 09/25/24 07:00 Insulin Human Regular ACHS SC 09/25/24 07:00 Dextrose 50 ml UD PRN IV 09/24/24 23:00 Ondansetron HCl 4 mg Q4HP PRN IV 09/24/24 23:00 Acetaminophen 650 mg Q6HP PRN PO 09/24/24 23:00 Nitroglycerin 0.4 mg Q5MINP PRN SL 09/24/24 23:00 Morphine Sulfate 2 mg Q30M PRN IV 09/24/24 23:00 Exam Vital Signs Vital Signs Date Time Temp Pulse Resp B/P (MAP) Pulse Ox O2 Delivery O2 Flow Rate FiO2 09/24/24 23:15 78 09/24/24 20:12 98.9 20 177/92 (120) 99 98.9 Exam Gen: 48-year-old female in no apparent distress, morbidly obese Skin: Warm, dry, normal color and texture, no rash. HEENT: Normocephalic atraumatic, mucous membranes moist and pink. Neck: Cervical and supraclavicular nodes normal without enlargement, trachea is midline, thyroid gland is normal without masses. Pulmonary: Clear to auscultation and percussion bilaterally. Cardiac: Regular rate and rhythm. No murmur Abdomen: Soft, nontender, nondistended, bowel sounds present all 4 quadrants, no guarding, no rigidity, no organomegaly. Extremities: No cyanosis, clubbing, no edema Neuro: Cranial nerves II through XII grossly intact, normal affect and speech, no focal motor deficits. Labs/Xrays ORDERING PHYSICIAN: CARO OH MD PROCEDURE(s): CXRP - CHEST PORTABLE REASON: chest pain ORDER NUMBER(s): [id number], ACCESSION NUMBER(s): [id number] CHEST RADIOGRAPH Indication: chest pain Technique: Single frontal view of the chest was obtained COMPARISON: XY CHEST XRAY 1 VIEW on DOS: 05/21/24 FINDINGS: Lines and Tubes: None Lungs: Clear Pleura: No effusion. No pneumothorax. Cardiomediastinal contours: Unremarkable Bones: Unremarkable IMPRESSION: No abnormality. Labs Test 09/24/24 22:53 09/24/24 21:00 09/24/24 20:18 Range/Units Troponin I High Sensitivity 4 </=34 ng/L Triglycerides Level 140 < 150 mg/dL Cholesterol Level 103 < 200 mg/dL LDL Cholesterol 43 < 100 mg/dL HDL Cholesterol 42 40-59 mg/dL White Blood Count 7.9 4.4-10.8 10^3/uL Red Blood Count 4.39 4.0-5.20 10^6/uL Hemoglobin 12.9 12.2-16.2 g/dL Hematocrit 37.8 36.0-46.0 % Mean Corpuscular Volume 85.9 80.0-100.0 fL Mean Corpuscular Hemoglobin 29.4 28.0-32.0 pg Mean Corpuscular Hemoglobin Concent 34.3 32.0-36.0 g/dL Red Cell Distribution Width 12.8 11.8-14.3 % Platelet Count 207 140-450 10^3/uL Mean Platelet Volume 9.5 6.9-10.8 fL Neutrophils (%) (Auto) 55.4 37.0-80.0 % Lymphocytes (%) (Auto) 33.2 10.0-50.0 % Monocytes (%) (Auto) 7.7 0.0-12.0 % Eosinophils (%) (Auto) 3.2 0.0-7.0 % Basophils (%) (Auto) 0.5 0.0-2.0 % Neutrophils # (Auto) 4.6 1.6-8.6 10 ^3/uL Lymphocytes # (Auto) 2.7 0.4-5.4 10 ^3/uL Monocytes # (Auto) 0.6 0-1.3 10 ^3/uL Eosinophils # (Auto) 0.3 0-0.8 10 ^3/uL Basophils # (Auto) 0 0-0.2 10 ^3/uL Nucleated Red Blood Cells 0.1 % Sodium Level 135 L 136-145 mmol/L Potassium Level 3.9 3.5-5.1 mmol/L Chloride Level 102 98-107 mmol/L Carbon Dioxide Level 24 20-31 mmol/L Anion Gap 9 5-15 Blood Urea Nitrogen 12 9-23 mg/dL Creatinine 0.77 0.550-1.02 mg/dL Glomerular Filtration Rate Calc 95 >90 mL/min BUN/Creatinine Ratio 15.6 10.0-20.0 Serum Glucose 238 H 74-106 mg/dL Calcium Level 9.2 8.7-10.4 mg/dL Assessment/Plan Assessment/Plan Assessment Chest pain Diabetes mellitus Accelerated hypertension Morbid obesity Plan Admit the patient to telemetry to the hospitalist Resume home medications Echocardiogram pending Continue treatment per orders. Plan discussed with: Patient My Orders Orders - URBANO NAJERA Procedure Category Date Status Time Thyroid Stimulating LAB 09/24/24 In Process Hormone 22:53 Atorvastatin (Lipitor) PHA 09/25/24 In Process 22:00 Lisinopril Tablet PHA 09/25/24 In Process (Zestril Tablet) 10:00 Aspirin Tablet PHA 09/25/24 In Process 10:00 Clopidogrel Bisulfate PHA 09/25/24 In Process (Plavix) 10:00 Basic Metabolic Panel LAB 09/25/24 Logged 04:00 Glucose Blood PHA 09/25/24 In Process (Accu-Chek Comfort 07:00 Insulin R (Human) PHA 09/25/24 In Process (Insulin R) 07:00 Dextrose 50% Syringe PHA 09/24/24 In Process 23:00 Admit ADMIT 09/24/24 Transmitted 22:53 Ondansetron Hcl PHA 09/24/24 In Process (Zofran) 23:00 Cardiac DIET 09/25/24 Transmitted Diet-2gna,Lofat,Lochol Breakfast Echo 2d Mode Cardiac US 09/24/24 Logged DOP 22:53 Condition: Fair AMY 09/24/24 In Process 22:53 Acetaminophen Tablet PHA 09/24/24 In Process (Tylenol Tablet) 23:00 Bedrest With Bathroom AMY 09/24/24 In Process Privileg 22:53 Nitroglycerin PHA 09/24/24 In Process Sublingual (Ntrostat 23:00 Morphine Sulfate PHA 09/24/24 In Process Injection 23:00 Stat Ekg For Chest AMY 09/24/24 In Process Pain 22:53 Notify Md Of Changes AMY 09/24/24 In Process From Base 22:53 Professor Of Poultry Science For [facility] 09/24/24 In Process 24 Hours 22:53 Emergency Dysrhythmia [facility] 09/24/24 In Process Protocol 22:53 Rhythm Strips Once AMY 09/24/24 In Process Every Shift 22:53 Oxygen By Nasal RT 09/24/24 Transmitted Cannula 22:53 Date of Service: Sep 24, 2024 Billing Provider: URBANO NAJERA Common Visit Codes: [id number] INP/OBS CARE (HIGH) URBANO NAJERA Sep 25, 2024 00:37
[2024-09-25] MEDS: ACCU-CHEK COMFORT CURVE STRIP VI SCH ×2 (06:07→08:00)
[2024-09-25] MEDS: InsuLIN REG 1unit/0.01ml Soln (100units/ml) SC SCH ×2 (06:09→08:00)
--- NOTE | 2024-09-25 06:43 | ECG ---
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
--- NOTE | 2024-09-25 06:43 | ECG ---
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
--- NOTE | 2024-09-25 06:43 | ECG ---
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
[2024-09-25 07:20] LABS: Anion Gap 8 (5-15); Carbon Dioxide 25 mmol/L (20-31); Chloride 102 mmol/L (98-107); Potassium 3.8 mmol/L (3.5-5.1)
[2024-09-25 07:21] LABS: Calcium 8.8 mg/dL (8.7-10.4)
[2024-09-25 07:26] LABS: Blood Urea Nitrogen 12 mg/dL (9-23); Glucose 363 mg/dL (74-106); Sodium 135 mmol/L (136-145)
[2024-09-25] MEDS ORDERED: DEXTROSE (50%) 50ML SYRG IV PRN (08:00)
[2024-09-25] MEDS ORDERED: HYDROcodone-ACET 7.5/325MG TAB PO PRN (08:15)
[2024-09-25] MEDS: ENOXAPARIN SOD 40 MG/0.4 ML SYRINGE SC ONE (08:15)
[2024-09-25 08:46] LABS: INR 1.09 (0.9-1.15); Partial Thromboplastin Time 26.6 SEC (24.5-34.5); Prothrombin Time 11.5 sec (9.3-11.8)
[2024-09-25] MEDS: CLOPIDOGREL BISULFATE 75 MG TAB PO SCH (10:34)
[2024-09-25] MEDS: LISINOPRIL 20 MG TAB PO SCH (10:34)
[2024-09-25] MEDS: PANTOPRAZOLE 40 MG/10 ML VIAL INJ IV ONE (10:49)
[2024-09-25] MEDS: INSULIN LANTUS (GLARGINE) 1 /0.01ml (100units/ml) SC ONE (10:53)
[2024-09-25] MEDS: ASPirin 81 mg TAB PO SCH (10:54)
--- NOTE | 2024-09-25 12:57 | ECG ---
[facility] Test Date: 2024-09-25 Test Time: 10:16:47 Pat Name: CARYL KELLER Department: Respiratoy Room: 0202T A Gender: F E D Tech: : 1975 Requested By: NONI [place] Order Number: [id number] Reading MD: Monster Alvarenga Measurements Intervals [place] Rate: 89 P: 55 MD: 155 QRS: 76 QRSD: 98 T: 66 QT: 380 QTc: 463 Interpretive Statements Sinus rhythm Electronically Signed On 09-25-2024 13:29:55 PDT by Monster Alvarenga Please click the below link to view image of tracing.
--- NOTE | 2024-09-25 15:10 | DVHDSRES ---
Discharge Summary Date of Admission Resident Creating Document: NONI PHOENIX RESDIENT Sep 24, 2024 at 22:53 Date of Discharge: Sep 25, 2024 Admitting Diagnosis Chest pain Labs/Diagnostic Data: Laboratory Results Test 09/25/24 10:35 09/25/24 06:26 09/24/24 22:53 09/24/24 21:00 POC Glucose 305 mg/dl (70-106) Prothrombin Time 11.5 sec (9.3-11.8) Prothrombin Time INR 1.09 (0.9-1.15) Activated Partial Thromboplast Time 26.6 SEC (24.5-34.5) Sodium Level 135 mmol/L (136-145) Potassium Level 3.8 mmol/L (3.5-5.1) Chloride Level 102 mmol/L (98-107) Carbon Dioxide Level 25 mmol/L (20-31) Anion Gap 8 (5-15) Blood Urea Nitrogen 12 mg/dL (9-23) Creatinine 0.86 mg/dL (0.550-1.02) Glomerular Filtration Rate Calc 83 mL/min (>90) BUN/Creatinine Ratio 14.0 (10.0-20.0) Serum Glucose 363 mg/dL (74-106) Hemoglobin A1c 7.8 % A1C (<5.7) Calcium Level 8.8 mg/dL (8.7-10.4) Magnesium Level 1.5 mg/dL (1.6-2.6) B-Type Natriuretic Peptide 80.08 pg/mL (0-100) Troponin I High Sensitivity 4 ng/L (</=34) Triglycerides Level 140 mg/dL (< 150) Cholesterol Level 103 mg/dL (< 200) LDL Cholesterol 43 mg/dL (< 100) HDL Cholesterol 42 mg/dL (40-59) Thyroid Stimulating Hormone (TSH) 1.74 uIU/mL (0.55-4.78) Test 09/24/24 20:18 White Blood Count 7.9 10^3/uL (4.4-10.8) Red Blood Count 4.39 10^6/uL (4.0-5.20) Hemoglobin 12.9 g/dL (12.2-16.2) Hematocrit 37.8 % (36.0-46.0) Mean Corpuscular Volume 85.9 fL (80.0-100.0) Mean Corpuscular Hemoglobin 29.4 pg (28.0-32.0) Mean Corpuscular Hemoglobin Concent 34.3 g/dL (32.0-36.0) Red Cell Distribution Width 12.8 % (11.8-14.3) Platelet Count 207 10^3/uL (140-450) Mean Platelet Volume 9.5 fL (6.9-10.8) Neutrophils (%) (Auto) 55.4 % (37.0-80.0) Lymphocytes (%) (Auto) 33.2 % (10.0-50.0) Monocytes (%) (Auto) 7.7 % (0.0-12.0) Eosinophils (%) (Auto) 3.2 % (0.0-7.0) Basophils (%) (Auto) 0.5 % (0.0-2.0) Neutrophils # (Auto) 4.6 10 ^3/uL (1.6-8.6) Lymphocytes # (Auto) 2.7 10 ^3/uL (0.4-5.4) Monocytes # (Auto) 0.6 10 ^3/uL (0-1.3) Eosinophils # (Auto) 0.3 10 ^3/uL (0-0.8) Basophils # (Auto) 0 10 ^3/uL (0-0.2) Nucleated Red Blood Cells 0.1 % Other Laboratory Tests 09/25/24 06:26 09/24/24 20:18 Brief Hx & Hospital Course: 48-year-old female with past medical history of hypertension, dyslipidemia, diabetes, CVA, obesity, depression and seizure came to the hospital due to chest pain. She reports the pain started suddenly while she was sitting on the chair, localized at substernal area, radiating to the neck, 7/10, lasted for 20 minutes with no clear exacerbating or relieving factor. She also reports mild shortness of breaths. She denies fever, cough, nausea, vomiting, or any recent bowel and bladder habit changes. Hospital course: She was admitted for evaluation of chest pain. EKGs showed normal sinus rhythm with no acute ST or T-wave changes. Serial trop I was within normal with. Patient was given aspirin, atorvastatin, clopidogrel, lisinopril and pain management. Hypomagnesemia was repleted. For diabetes the patient was given Lantus 20 units with insulin regular with moderate sliding scale. On 09/26/2023, the patient was feeling better since admission. Discharge plan discussed with the patient with the patient was discharged home. Discharge plan: Follow up with the PCP within 1 week of the discharge and adjustment of diabetic medicine Continue home meds Condition at Discharge: Stable Final Diagnosis/Problems List Chest pain, noncardiac Hypertension Uncontrolled diabetes mellitus type 2 with hyperglycemia Morbid obesity Dyslipidemia History of CVA Depression History of seizure Hypomagnesemia Discharge Disposition: Home Discharge Instruct/Medications Diet: Cardiac 2g Na,low cholest Activity: No Restrictions, As Tolerated Follow Up/Referral: Follow with the PCP within 1 week after discharge for adjustment of diabetic medicine. Medications: Continue home meds Discharge Statement: "Patient was advised to return to the ER or call 911 if any headaches, dizziness, shortness of breath, chest pain, abdominal pain, bleeding, fevers, or worsening of medical condition. Patient was counseled about treatment plan, medications, possible side effects, patientverbalized understanding. All questions were answered to the best of my ability. This discharge took greater then 30 minutes in planning, reviewing documentation, counseling the patient, and discussing with other team members." ASSESSMENT ASSESSMENT Assessment Chest pain, noncardiac Date of Service: Sep 25, 2024 Billing Provider: BERTA DILLON MD Common Visit Codes: 59436-XFA/OBS DISCH DAY >30min NONI PHOENIX RESDIENT Sep 25, 2024 15:10 BERTA DILLON MD Sep 30, 2024 01:54
[2024-09-25] MEDS: MAGNESIUM SULFATE 1GM/100ML 100 ML IV SCH (15:49)
[2024-09-25] MEDS: HYDROcodone-ACET 5/325MG TAB PO PRN (16:07)
[2024-09-25] MEDS: ATORVASTATIN 20 MG TAB PO SCH (21:43)
[2024-09-26] MEDS ORDERED: INSULIN LANTUS (GLARGINE) 1 /0.01ml (100units/ml) SC SCH (07:00)
[2024-09-26] MEDS ORDERED: PANTOPRAZOLE 40 MG/10 ML VIAL INJ IV SCH (10:00)
[2024-09-26] MEDS ORDERED: ENOXAPARIN SOD 40 MG/0.4 ML SYRINGE SC SCH (10:00)
--- NOTE | 2024-09-28 07:46 | ECG ---
[facility] Test Date: 2024-09-25 Test Time: 10:17:41 Pat Name: CARYL KELLER Department: Respiratoy Room: 0202T A Gender: F Materials Analyst: : 1975 Requested By: URBANO NAJERA Order Number: [id number] Reading MD: Measurements Intervals [place] Rate: 91 P: 50 WA: 158 QRS: 79 QRSD: 99 T: 67 QT: 397 QTc: 489 Interpretive Statements Sinus rhythm Borderline prolonged QT interval Please click the below link to view image of tracing.
== END 2024-09-25 23:40 | disposition home or self-care (01) | DRG 203 ==
LOC: ER 20:08 → EEVIPCON 20:08 → OVERFLOW 22:53 → TELE-CENTR 23:31
PROVIDERS: ADMIT Student in an Organized Health Care Education/Training Program; ATTEND Student in an Organized Health Care Education/Training Program
DX: M94.0 Chondrocostal junction syndrome [Tietze] (principal); E11.9 Type 2 diabetes mellitus without complications; E66.01 Morbid (severe) obesity due to excess calories; F32.A Depression, unspecified; I10 Essential (primary) hypertension; E78.5 Hyperlipidemia, unspecified; E83.42 Hypomagnesemia; Z79.82 Long term (current) use of aspirin; Z79.899 Other long term (current) drug therapy; Z79.84 Long term (current) use of oral hypoglycemic drugs; Z90.49 Acquired absence of other specified parts of digestive tract; Z86.73 Personal history of transient ischemic attack (TIA), and cerebral infarction without residual deficits; Z98.891 History of uterine scar from previous surgery
CPT/HCPCS: 36415; 71045; 80048; 80061; 82962; 83036; 83735; 83880; 84443; 84484; 85025; 85610; 85730; 93005; 99291; G0378; J1815; J2470

== ENCOUNTER 2025-04-20 14:25 | Emergency (ER) | payer MEDICAID ==
[~2025-04-20] VITALS: Ht 175.3 cm; Wt 148.3 kg
[2025-04-20] MEDS: SODIUM CHLORIDE 0.9% 1,000 ML IV ONE (15:30)
[2025-04-20] MEDS: KETOROLAC TROMETH 30 MG/ML 1ML VIAL IV ONE (15:30)
[2025-04-20] MEDS: METOCLOPRAMIDE HCL 5MG/ml INJ 2ml VIAL IV ONE (15:30)
[2025-04-20] MEDS: diphenhydrAMINE HCL 50 MG/1 ML VL IV ONE (15:30)
--- NOTE | 2025-04-20 15:36 | ED.PDOC ---
History of Present Illness HPI Comments 49 y/o F, with PMHx of HTN, HLD, DM, CVA, and seizures presents to the ED for CC of headache. Patient states, she has had a generalized headache x2days. Patient reports, being seen at [facility] for SS x2days ago and all blood work and CT of head being unremarkable. Was told that her blood pressure was elevated at that time. Patient was prescribed Tylenol and nausea medication for symptoms however, has not experienced relief. Also states that her blood pressure has been high over the past week. Typically takes lisinopril and hydrochlorothiazide which she reports compliance with. Patient denies headache with aura, dizziness, nausea, vomiting, or photophobia. Denying any current chest pain. No new quality to the headache aside from what she was already seen for at another hospital 2 days ago. No other symptoms or modifying factors are present at this time. Chief Complaint: Headache Time Seen by MD: 15:30 Primary Care Provider: ANASTASIYA Reviewed Notes: Nurses Notes, Medications, Allergies Allergies: Coded Allergies: NO KNOWN ALLERGIES (Unverified , 10/01/15) Home Meds Active Scripts Montelukast Sodium (Singulair) 10 Mg Tab, 10 MG PO DAILY PRN, #30 TAB Prov:FLORIDALMA EDWARDS PROFESSOR OF MANAGEMENT 12/30/23 Promethazine-Dm (Promethazine Dm 6.25-15 mg/5Ml) 1 Jenny Jenny, 10 ML PO TID PRN, #240 ML Prov:FLORIDALMA EDWARDS PROFESSOR OF MANAGEMENT 12/30/23 Lancets (Freestyle Lancets) Lancets Mis, AC XX ACHS, #120 2 Refills ACHS Prov:NIURKA MONTGOMERY RESIDENT 09/04/23 Blood Glucose Monitoring Suppl (EASY TOUCH GLUCOSE MONITO) Monitor Kit, AC XX ACHS PRN, #1 2 Refills ACHS Prov:NIURAK MONTGOMERY RESIDENT 09/04/23 Empagliflozin (Jardiance) 10 Mg Tab, 10 MG PO DAILY for 30 Days, #30 TAB 2 Refills Prov:NIURKA MONTGOMERY RESIDENT 09/04/23 Metformin Hydrochloride (Metformin Hcl) 500 Mg Tab, 1 TAB PO BID for 30 Days, #60 TAB 3 Refills Prov:NIURKA MONTGOMERY RESIDENT 09/04/23 Ergocalciferol (VITAMIN D 33975 UNIT) 50,000 [place], [address] UNIT PO Q7D for 90 Days, #12 CAP Prov:NIURKA MONTGOMERY [facility] 09/04/23 Cyanocobalamin (Gnp Vitamin B12) 500 Mcg Tab, 500 MCG PO DAILY for 30 Days, #30 TAB 2 Refills Prov:NIURKA MONTGOMERY [facility] 09/04/23 Clopidogrel Bisulfate (CLOPIDOGREL) 75 Mg Tab, 75 MG PO DAILY for 21 Days, #21 TAB Prov:NIURKA MONTGOMERY [facility] 09/04/23 Bupropion Hcl (Bupropion Hcl) 75 Mg Tab, 75 MG PO BID@07,19 for 30 Days, #60 TAB 2 Refills Prov:NIURKA MONTGOMERY [facility] 09/04/23 Atorvastatin Calcium (ATORVASTATIN CALCIUM) 20 Mg Tab, 40 MG PO HS for 30 Days, #60 TAB 2 Refills Prov:NIURKA MONTGOMERY [facility] 09/04/23 Aspirin (Aspir-Low) 81 Mg Tab, 81 MG PO DAILY for 30 Days, #30 TAB 2 Refills Prov:NIURKA MONTGOMERY [facility] 09/04/23 Information Source: Patient Mode of Arrival: Ambulatory Severity: Moderate Timing: Days Duration: Since onset Prehospital treatment: None Past Medical History PAST MEDICAL HISTORY: CVA, DM, High Lipids, HTN, Seizures Surgical History: BTL, Cholecystectomy, 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 FIELD OPERATOR History: No Pertinent OIL FIELD OPERATOR History Family History Family History: Reviewed,noncontributory to illness Social History Smoker: Non-Smoker Alcohol: Denies ETOH Use Drugs: Denies Drug Use Lives In: Home Constitutional: denies: chills, diaphoresis, fatigue, fever, malaise, sweats, weakness, others EENTM: denies: blurred vision, double vision, ear bleeding, ear discharge, ear drainage, ear pain, ear ringing, eye pain, eye redness, hearing loss, mouth tom n, mouth swelling, nasal discharge, nose bleeding, nose congestion, nose pain, photophobia, tearing, throat pain, throat swelling, voice changes, others Respiratory: denies: cough, hemoptysis, orthopnea, SOB at rest, shortness of breath, SOB with excertion, stridor, wheezing, others Cardiovascular: denies: chest pain, dizzy spells, diaphoresis, Dyspnea on exertion, edema, irregular heart beat, left arm pain, lightheadedness, palpitations, PND, syncope, others Gastrointestinal: denies: abdomen distended, abdominal pain, blood streaked bowels, constipated, diarrhea, dysphagia, difficulty swallowing, hematemesis, melena, nausea, poor appetite, poor fluid intake, rectal bleeding, rectal pain, vomiting, others Genitourinary: denies: abnormal vagina bleeding, burning, dyspareunia, dysuria, flank pain, frequency, hematuria, incontinence, pain, , vagina discharge, urgency, others Neurological: reports: headache; denies: dizziness, fainting, left sided numbness, left sided weakness, numbness, paresthesia, pre-existing deficit, right sided numbness, right sided weakness, seizure, speech problems, tingling, tremors, weakness, others Musculoskeletal: denies: back pain, gout, joint pain, joint swelling, muscle pain, muscle stiffness, neck pain, others Integumetry: denies: bruises, change in color, change in hair/nails, dryness, laceration, lesions, lumps, rash, wounds, others Allergic/Immunocompromised: denies: Difficulty Healing, Frequent Infections, Hives, Itching, others Hematologic/Lymphatic: denies: anemia, blood clots, easy bleeding, easy bruisin g, swollen glands, others Endocrine: denies: excessive hunger, excessive sweating, excessive thirst, excessive urination, flushing, intolerance to cold, intolerance to heat, unexplained weight gain, unexplained weight loss, others Psychiatric: denies: anxiety, bipolar disorder, depression, hopeless, panic disorder, schizophrenia, sleepless, suicidal, others All Other Systems: Reviewed and Negative Physical Exam General Appearance: No Apparent Distress, Normal HEENT: Normal ENT Inspection, Pharynx Normal, TMs Normal Neck: Full Range of Motion, Non-Tender, Normal, Normal Inspection Respiratory: Chest Non-Tender, Lungs Clear, No Accessory Muscle Use, No Respiratory Distress, Normal Breath Sounds Cardiovascular: No Edema, No JVD, No Murmur, No Gallop, Normal Peripheral Pulses, Regular Rate/Rhythm Breast Exam: Deferred Gastrointestinal: No Organomegaly, Non Tender, No Pulsatile Mass, Normal Bowel Sounds, Soft Genitalia: Deferred Pelvic: Deferred Rectal: Deferred Extremities: No calf tenderness, Normal capillary refill, Normal inspection, Normal range of motion, Non-tender, No pedal edema Musculoskeletal : Apperance: Normal Neurologic: Alert, air [employer] senior officer II-XII nml as Tested, No Motor Deficits, Normal Affect, Normal Mood, No Sensory Deficits Cerebellar Function: Normal Reflexes: Normal Skin: Dry, Normal Color, Warm Lymphatic: No Adenopathy Was a procedure done? Was a procedure done?: No Differential Dx Considerations may include: Hypertensive urgency, hypertensive crisis, electrolyte imbalance, migraine headache X-Ray, Labs, Meds, VS Vital Signs Date Time Temp Pulse Resp B/P (MAP) Pulse Ox O2 Delivery O2 Flow Rate FiO2 04/20/25 22:05 98.1 73 18 172/98 (122) 95 98.1 04/20/25 21:10 92 180/81 04/20/25 21:02 92 16 180/81 (114) 97 04/20/25 17:28 78 18 96 Room Air 04/20/25 17:28 98.8 78 18 195/112 (139) 96 98.8 04/20/25 15:30 195/112 04/20/25 14:31 97.7 99 20 187/96 95 97.7 Current Medications Medications (Trade) Dose Ordered Sig/Reed Route Start Time Stop Time Status Last Admin Metoclopramide HCl (Reglan Injection) 10 mg ONCE ONCE IV 04/20/25 15:30 04/20/25 15:31 DC 04/20/25 15:30 Sodium Chloride 1,000 ml @ 1,000 mls/hr Q1H ONCE IV 04/20/25 15:30 04/20/25 16:29 DC 04/20/25 15:30 Diphenhydramine HCl (Benadryl Injection) 25 mg ONCE ONCE IV 04/20/25 15:30 04/20/25 15:31 DC 04/20/25 15:30 Ketorolac Tromethamine (Toradol Injection) 15 mg ONCE ONCE IV 04/20/25 15:30 04/20/25 15:31 DC 04/20/25 15:30 Hydralazine HCl (Apresoline Tablet) 25 mg ONCE ONCE PO 04/20/25 15:30 04/20/25 15:31 DC 04/20/25 15:30 Labetalol HCl (Labetalol HCl) 20 mg ONCE ONCE IV 04/20/25 19:30 04/20/25 19:31 DC 04/20/25 21:10 Acetaminophen (Tylenol Tablet) 1,000 mg ONCE ONCE PO 04/20/25 20:45 04/20/25 20:46 DC 04/20/25 21:11 Time of 1ST Reevaluation: 16:00 Reevaluation 1ST: Unchanged Time of 2ND Reevaluation: 22:35 (Reporting resolution of headache. Blood pressure downtrending. Will be discharged for further outpatient management.) Reevaluation 2ND: Improved Patient Education/Counseling: Diagnosis, Treatment Family Education/Counseling: No Family Present SEPSIS Sepsis Screen Date sepsis recognized/suspect: Apr 20, 2025 Time Sepsis recognized/suspect: 1434 Recent Procedure: No On Antibiotic Therapy: No Respiratory Rate >20: No Heart Rate >90: No Temp<36 C (96.8 F) or >38.3 C: No SBP <90 or MAP <65 mmHG: No New Acute Mental Status Change: No Is the patient on CPAP, BIPAP,: No Vital Signs Date Time Temp Pulse Resp B/P (MAP) Pulse Ox O2 Delivery O2 Flow Rate FiO2 04/20/25 22:05 98.1 73 18 172/98 (122) 95 98.1 04/20/25 21:10 92 180/81 04/20/25 21:02 92 16 180/81 (114) 97 04/20/25 17:28 78 18 96 Room Air 04/20/25 17:28 98.8 78 18 195/112 (139) 96 98.8 04/20/25 15:30 195/112 04/20/25 14:31 97.7 99 20 187/96 95 97.7 Medications Medications Dose Ordered Sig/Reed Route Start Time Stop Time Status Last Admin Dose Admin Acetaminophen 1,000 mg ONCE ONCE PO 04/20/25 20:45 04/20/25 20:46 DC 04/20/25 21:11 Diphenhydramine HCl 25 mg ONCE ONCE IV 04/20/25 15:30 04/20/25 15:31 DC 04/20/25 15:30 Hydralazine HCl 25 mg ONCE ONCE PO 04/20/25 15:30 04/20/25 15:31 DC 04/20/25 15:30 Ketorolac Tromethamine 15 mg ONCE ONCE IV 04/20/25 15:30 04/20/25 15:31 DC 04/20/25 15:30 Labetalol HCl 20 mg ONCE ONCE IV 04/20/25 19:30 04/20/25 19:31 DC 04/20/25 21:10 Metoclopramide HCl 10 mg ONCE ONCE IV 04/20/25 15:30 04/20/25 15:31 DC 04/20/25 15:30 Sodium Chloride 1,000 ml @ 1,000 mls/hr Q1H ONCE IV 04/20/25 15:30 04/20/25 16:29 DC 04/20/25 15:30 Departure 1 Departure Time of Disposition: 21:01 (49 y/o F, with PMHx of HTN, HLD, DM, CVA, and seizures presents to the ED for CC of headache the past 2 days. Headache not worse at onset. Was seen at another hospital for the same within the past 48 hours and had a lab work and CT imaging that was within normal limits. Patient with no new quality to discomfort. Given similar headache for which she was already evaluated at another hospital does not require any repeat labs, imaging at this time. Patient's symptoms were treated instead. Normally saline IV fluid bolus, IV Toradol, IV Reglan, IV Benadryl and oral Tylenol. Was also given oral hydralazine and IV labetalol for blood pressure. Was observed for several hours and feeling significantly improved after interventions. Blood pressure downtrending, however, do not wanted to quickly normalized given that it has been elevated for about a week. Patient will be discharged with a prescription for additional medications to take for her headaches, we will also be given a prescription for some hydralazine to take as needed if her systolic blood pressure remains over 170s over the next few days. Recommended follow up with outpatient primary care doctor for further management of high blood pressure and headaches.) Impression: Primary Impression: Headache Additional Impression: Uncontrolled hypertension Disposition: HOME / SELF CARE / HOMELESS Condition: Stable Additional Instructions: You were evaluated today for headaches, elevated blood pressure. Your blood pressure was elevated, however, improving by time of discharge. You mentioned that your blood pressure has remained elevated over the past week. Please continue to keep a daily log of your blood pressure. You were given a prescription for oral hydralazine which you can take up to twice per day as needed if your systolic blood pressure is over 170s. You were only given a few days of this medication. You must follow up with their outpatient primary care doctor for further discussion of management of your high blood pressure. You were also given some prescriptions for medications to help with her headache. Return to any emergency department for worsening symptoms despite outpatient management. e-Prescriptions Hydralazine Hcl (Hydralazine Hcl) 25 Mg Tab 25 MG PO BIDPRN PRN for 14 Days, #28 TAB Prov: SAWYER MEJIA MD 04/20/25 Ibuprofen Micronized (Ibuprofen) 600 Mg Tab 600 MG PO Q8HPRN PRN for 5 Days, #15 TAB Prov: SAWYER MEJIA MD 04/20/25 Ozjiciqpax-Iczwxiheqkmnh-Vduem (FIORICET) Cap 1 CAP OR TID for 7 Days, #21 CAP Prov: SAWYER MEJIA MD 04/20/25 Metoclopramide Hcl (Metoclopramide Hcl) 10 Mg Tab 10 MG PO Q8HPRN PRN for 5 Days, #15 TAB Prov: SAWYER MEJIA MD 04/20/25 Discharged With: Self Critical Care Note Critical Care Time?: Yes (30 min-critical care time only) Critical care comment: Patient with critically elevated blood pressure requiring IV and oral antihype rtensives to lower her blood pressure. Stability Stability form required: No Heart Score Heart Score: Heart Score Response (Comments) Value History N/A 0 EKG N/A 0 Age N/A 0 Risk Factors N/A 0 Troponin N/A 0 Total 0 I personally scribed for SAWYER MEJIA MD ([email or web address]) on 04/20/25 at 15:36. Electronically submitted by Oralia Astorga ([email or web address]). SAWYER MEJIA MD Apr 20, 2025 15:36
[2025-04-20] MEDS: LABETALOL HCL 20 MG/4 ML VL IV ONE (21:10)
[2025-04-20] MEDS: ACETAMINOPHEN 325 MG TAB PO ONE (21:11)
[2025-04-20 22:05] VITALS: BP 172/98; PULSE 73; RESP 18; TEMP 98.1; O2SAT 95
[2025-04-20] MEDS ORDERED: METO10TA3 PO (22:40)
[2025-04-20] MEDS ORDERED: BUTA-280 OR (22:40)
[2025-04-20] MEDS ORDERED: HYDR25TA88 PO (22:40)
[2025-04-20] MEDS ORDERED: IBUP1TAB5 PO (22:40)
== END 2025-04-20 22:56 | disposition home or self-care (01) ==
LOC: EEVIPCON 14:25 → ER 14:25
DX: I10 Essential (primary) hypertension (principal); R51.9 Headache, unspecified; E11.9 Type 2 diabetes mellitus without complications; E78.5 Hyperlipidemia, unspecified; Z79.82 Long term (current) use of aspirin; Z79.84 Long term (current) use of oral hypoglycemic drugs; Z79.899 Other long term (current) drug therapy; Z86.73 Personal history of transient ischemic attack (TIA), and cerebral infarction without residual deficits; Z90.49 Acquired absence of other specified parts of digestive tract; Z98.51 Tubal ligation status
CPT/HCPCS: 96361; 96374; 96375; 99285; J1200; J1885; J2765; J7030